=== PATIENT | female | born 1975 | race Hispanic/Latino ===

== ENCOUNTER → 2017-01-05 | Outpatient (REF) | payer OTHER ==
[2017-01-05 12:19] LABS: BASO % 0.3 % (0.0-1.0); EOS # 0.1 K/mm3 (0.0-0.50); EOS % 1.2 % (0.0-3.0); LARGE UNSTAINED CELL # 0.1 K/mm3 (0.0-0.4); LARGE UNSTAINED CELL % 0.8 % (0.0-4.0); LYMPH # 2.1 K/mm3 (1.5-4.5); LYMPH % 17.1 % (24.0-44.0); MEAN CORPUSCULAR HGB CONC 32.8 g/dl (32.0-36.5); MEAN CORPUSCULAR VOLUME 82.3 fl (80.0-96.0); MONO # 0.5 K/mm3 (0.0-0.8); MONO % 4.1 % (0.0-5.0); NEUTROPHILS # 8.9 K/mm3 (1.8-7.7); NEUTROPHILS % 76.5 % (36.0-66.0); PLATELET COUNT, AUTOMATED 469 k/mm3 (150-450); RED CELL DISTRIBUTION WIDTH 13.6 % (11.5-14.5); WHITE BLOOD COUNT 11.6 K/mm3 (4.0-10.0)
[2017-01-05 12:47] LABS: ALBUMIN 3.8 GM/DL (3.2-5.2); ALBUMIN/GLOBULIN RATIO 0.97 (1.00-1.93); ALKALINE PHOSPHATASE 80 U/L (45-117); ALT/SGPT 44 U/L (12-78); ANION GAP 8 MEQ/L (8-16); AST/SGOT 20 U/L (15-37); BILIRUBIN,TOTAL 0.2 MG/DL (0.2-1.0); BLOOD UREA NITROGEN 15 MG/DL (7-18); CALCIUM LEVEL 9.3 MG/DL (8.5-10.1); CARBON DIOXIDE LEVEL 27 MEQ/L (21-32); CHLORIDE LEVEL 106 MEQ/L (98-107); GLOMERULAR FILTRATION RATE > 60.0 (>58); GLUCOSE, FASTING 95 MG/DL (70-105); POTASSIUM SERUM 4.2 MEQ/L (3.5-5.1); SODIUM LEVEL 141 MEQ/L (136-145); TOTAL PROTEIN 7.7 GM/DL (6.4-8.2)
== END ==
LOC: M LABNEURO 11:20
PROVIDERS: ATTEND Psychiatry & Neurology Neurology
DX: R53.83 Other fatigue (principal)

== ENCOUNTER → 2017-01-09 | Outpatient (CLI) | payer OTHER ==
[2017-01-09 15:59] LABS: BASO % 0.3 % (0.0-1.0); EOS # 0.3 K/mm3 (0.0-0.50); LYMPH # 2.3 K/mm3 (1.5-4.5); LYMPH % 23.4 % (24.0-44.0); MEAN CORPUSCULAR HEMOGLOBIN 26.6 pg (27.0-33.0); MEAN CORPUSCULAR HGB CONC 32.5 g/dl (32.0-36.5); MEAN CORPUSCULAR VOLUME 81.8 fl (80.0-96.0); MONO # 0.3 K/mm3 (0.0-0.8); MONO % 3.6 % (0.0-5.0); NEUTROPHILS # 6.6 K/mm3 (1.8-7.7); RED CELL DISTRIBUTION WIDTH 13.5 % (11.5-14.5); WHITE BLOOD COUNT 9.6 K/mm3 (4.0-10.0)
[2017-01-09 16:39] LABS: ALBUMIN 3.7 GM/DL (3.2-5.2); ALBUMIN/GLOBULIN RATIO 0.93 (1.00-1.93); ALKALINE PHOSPHATASE 82 U/L (45-117); ALT/SGPT 45 U/L (12-78); ANION GAP 6 MEQ/L (8-16); AST/SGOT 17 U/L (15-37); BILIRUBIN,TOTAL 0.2 MG/DL (0.2-1.0); BLOOD UREA NITROGEN 14 MG/DL (7-18); CALCIUM LEVEL 8.7 MG/DL (8.5-10.1); CARBON DIOXIDE LEVEL 30 MEQ/L (21-32); CHLORIDE LEVEL 104 MEQ/L (98-107); CHOLESTEROL LEVEL 164 MG/DL (<200); CREATININE FOR GFR 0.85 MG/DL (0.55-1.02); FREE T4 0.84 NG/DL (0.76-1.46); GLOMERULAR FILTRATION RATE > 60.0 (>58); GLUCOSE, FASTING 107 MG/DL (70-105); POTASSIUM SERUM 4.2 MEQ/L (3.5-5.1); SODIUM LEVEL 140 MEQ/L (136-145); TOTAL PROTEIN 7.7 GM/DL (6.4-8.2); TRIGLYCERIDES LEVEL 207 MG/DL (<150)
== END ==
LOC: M LAB 15:13
PROVIDERS: ATTEND Nurse Practitioner Adult Health
DX: E55.9 Vitamin D deficiency, unspecified (principal); Z79.899 Other long term (current) drug therapy; D64.9 Anemia, unspecified; F41.9 Anxiety disorder, unspecified

== ENCOUNTER → 2017-02-08 | Outpatient (CLI) | payer OTHER | LOC: M RAD 15:59 | PROVIDERS: ATTEND Physician Assistant Medical | DX: M25.571 Pain in right ankle and joints of right foot (principal) ==

== ENCOUNTER 2017-03-15 09:32 | Inpatient (IN) | payer OTHER ==
[~2017-03-15] VITALS: Ht 175.3 cm; Wt 87.2 kg
[2017-03-15] MEDS ORDERED: CLAR10CA3 PO (09:58)
[2017-03-15] MEDS ORDERED: NORT10SO PO (09:58)
[2017-03-15 10:22] LABS: MEAN CORPUSCULAR HEMOGLOBIN 27.1 pg (27.0-33.0); MEAN CORPUSCULAR HGB CONC 33.4 g/dl (32.0-36.5); MEAN CORPUSCULAR VOLUME 81.2 fl (80.0-96.0); RED CELL DISTRIBUTION WIDTH 13.6 % (11.5-14.5); WHITE BLOOD COUNT 10.4 K/mm3 (4.0-10.0)
[2017-03-15 10:43] LABS: CONTROL LINE HCG INT CTR LINE PRESENT
[2017-03-15 10:58] LABS: ALBUMIN 3.9 GM/DL (3.2-5.2); ALBUMIN/GLOBULIN RATIO 0.95 (1.00-1.93); ALKALINE PHOSPHATASE 80 U/L (45-117); ALT/SGPT 50 U/L (12-78); ANION GAP 8 MEQ/L (8-16); AST/SGOT 27 U/L (15-37); BILIRUBIN,DIRECT 0.1 MG/DL (0.0-0.2); BILIRUBIN,TOTAL 0.4 MG/DL (0.2-1.0); BLOOD UREA NITROGEN 12 MG/DL (7-18); CALCIUM LEVEL 9.1 MG/DL (8.5-10.1); CARBON DIOXIDE LEVEL 25 MEQ/L (21-32); CHLORIDE LEVEL 103 MEQ/L (98-107); CREATININE FOR GFR 0.69 MG/DL (0.55-1.02); GLOMERULAR FILTRATION RATE > 60.0 (>58); GLUCOSE, FASTING 89 MG/DL (70-105); POTASSIUM SERUM 3.9 MEQ/L (3.5-5.1); SODIUM LEVEL 136 MEQ/L (136-145)
[2017-03-15 11:05] LABS: METHADONE URINE NEGATIVE (NEGATIVE)
[2017-03-15 16:09] VITALS: BP 131/74
[2017-03-15] MEDS ORDERED: LORATADINE 10 MG TAB PO PRN (17:45)
[2017-03-15] MEDS ORDERED: MOM 30ML SUSPENSION UDC PO PRN (17:45)
[2017-03-15] MEDS ORDERED: MAALOX 30 ML SUSP *UDC PO PRN (17:45)
[2017-03-15] MEDS ORDERED: NORTRIPTYLINE 10 MG CAP PO PRN (17:45)
[2017-03-15] MEDS ORDERED: traZODone 50 MG TAB PO PRN (17:45)
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
[2017-03-16] MEDS: ACETAMINOPHEN TAB 650MG DOSE (2X325MG) PO PRN ×3 (06:09→22:21)
[2017-03-16 06:35] VITALS: BP 126/87
[2017-03-16] MEDS ORDERED: ALBUTEROL 90 MCG/ACT 8GM HFA INHALER INH PRN (10:00)
--- NOTE | 2017-03-16 10:00 | HPEPDOC ---
Medical History and Physical Date of Admission Mar 15, 2017 at 15:37 History and Physical PCP: None ATTENDING: Dr. Hero Bernard HPI: 41yoF admitted to [facility] for MDD, being medically examined today. No acute medical complaints today. Denies any fevers, chills, weakness, fatigue, DOTY, CP, SOB, cough, palpitations, abdominal pain, N/V/D or changes in bowel or bladder habits. PMHx: Migraine headache. Following with Dr Neves in [place]. Chronic photophobia Blepharospasm Exercise-induced asthma Depression Allergic rhinitis PSHX: 1 SOCHX: Resides in: [place] Marital Status: Kids: 5 Employment: [employer] Tobacco use: 5 per year ETOH: 4 drinks on weekends Illicit Drugs: Denies IV Drug Use: Denies Tattoos done unprofessionally: Denies FAMHX: Mother: Alive, DM Father: Unknown Siblings: Alive, well Children: Alive, asthma Unexpected deaths due to medical reasons: None. ROS: As noted in HPI, otherwise 11pt ROS of systems reviewed and remarkable only for LMP 02/22/17 PE: GEN: 41 yo F, appears stated age. Well-nourished, well developed. No acute distress. Alert and oriented x 3. Affect flat. Tangential speech HEENT: Normocephalic, atraumatic. Patient is wearing dark glasses which she states she is unable to remove. Nose midline. Nasal turbinates without bogginess. EACs both patent BL. TMs both visualized and johnson with good cone of light, no bulging or erythema. No facial asymmetry. Moist mucous membranes. Dentition fair. Pharynx pink and moist, no cobblestoning. Neck supple, trachea midline. No lymphadenopathy or thyromegaly appreciated. CHEST: Regular rate and rhythm, +S1, +S2 LUNGS: Clear to auscultation bilaterally. No wheezes, rales, or rhonchi. Breathing appears symmetric and easy. Patient is speaking in full sentences. No accessory muscle use. ABD: Round, soft, non-tender, non-distended. +Bowel sounds throughout. No rebound or guarding. No costovertebral angle tenderness. EXT: Pulses 2+ bilaterally dorsalis pedis and radial. No lower extremity edema appreciated. SKIN: [place], dry, warm. Capillary refill <2sec. No rashes. NEURO: Alert and oriented x 3. Cranial nerves III-XII are intact. No focal deficits appreciated. EKG: pending. A&P: 41yoF admitted to [facility] for MDD 1. Psych. Plan per Psychiatry. Obtain baseline EKG to assure the safety of psychiatric medications as they can prolong the QT interval. 2. Chronic migraine headaches/photophobia/blepharospasm. Continue outpatient follow-up with Dr. Neves in [place]. Tylenol 650 mg every 6 hours as needed. 3. Exercise-induced asthma. Albuterol 2 puffs every 4 hours as needed. 4. Follow up. No Primary Care Provider. Will attempt to establish PCP on discharge. 5. Allergic rhinitis. Continue Claritin 10 mg daily as needed. 6. Staff member Eneida present throughout exam. Vital Signs Vital Signs Date Time Temp Pulse Resp B/P (MAP) Pulse Ox O2 Delivery O2 Flow Rate FiO2 03/16/17 06:35 96.3 101 18 126/87 (100) 03/15/17 16:09 97 Room Air Laboratory Data Labs 24H Laboratory Tests 2 03/15/17 10:04: Human Chorionic Gonadotropin, Qual NEGATIVE, Urine Amphetamines Screen NEGATIVE , Urine Benzodiazepines Screen NEGATIVE, Urine Opiates Screen NEGATIVE, Urine Methadone Screen NEGATIVE, Urine Barbiturates Screen NEGATIVE, Urine Phencyclidine Screen NEGATIVE, Urine Cocaine Metabolite Screen NEGATIVE, Urine Cannabinoids Screen NEGATIVE 03/15/17 10:08: Anion Gap 8, Glomerular Filtration Rate > 60.0, Calcium Level 9.1, Aspartate Amino Transf (AST/SGOT) 27, Alanine Aminotransferase (ALT/SGPT) 50, Alkaline Phosphatase 80, Total Bilirubin 0.4, Direct Bilirubin 0.1, Total Protein 8.0, Albumin 3.9, Albumin/Globulin Ratio 0.95L, Thyroid Stimulating Hormone (TSH) 2.470, Salicylates Level < 1.7L, Acetaminophen Level < 2.0L, Ethyl Alcohol Level < 0.003 CBC/BMP Laboratory Tests 03/15/17 10:08 Red Blood Count 4.41, Mean Corpuscular Volume 81.2, Mean Corpuscular Hemoglobin 27.1, Mean Corpuscular Hemoglobin Concent 33.4, Red Cell Distribution Width 13.6 Home Medications No Active Prescriptions or Reported Meds Allergies Coded Allergies: No Known Drug Allergy (Verified Allergy, Unknown, 03/15/17) Joycelyn Kurtz Mar 16, 2017 10:00
[2017-03-16] MEDS: SERTRALINE HCL 50 MG TAB PO SCH (16:02)
[2017-03-16] MEDS ORDERED: diphenhydrAMINE 50 MG CAP PO PRN (18:00)
[2017-03-16] MEDS ORDERED: NORTRIPTYLINE 10 MG CAP PO PRN (18:00)
[2017-03-16 18:10] VITALS: BP 122/84
--- NOTE | 2017-03-16 21:30 | ECGEPIP ---
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
[2017-03-17 06:47] VITALS: BP 122/78
[2017-03-17] MEDS: SERTRALINE HCL 50 MG TAB PO SCH (08:30)
[2017-03-17] MEDS: ACETAMINOPHEN TAB 650MG DOSE (2X325MG) PO PRN (08:30)
--- NOTE | 2017-03-17 11:35 | IPN ---
DATE: 03/16/2017 41-year-old female, who presented at the patient clinic for medication management and reported feeling extremely depressed and considering suicide for the last few days, walking into traffic due to a rare eye condition that is causing her several problems and is creating feelings of worthlessness, helplessness and hopelessness. She describes crying frequently, having loss of interest, excessive worries and difficulty engaging in life. Today, the patient denies suicidal thoughts and refused to say when was the last time that she had a suicidal thought. She expressed several times that she knows the difference between being "a little bit depressed" compared to being "very depressed". She says that she was very depressed years ago when she was in [place] and she attempted to kill herself walking into traffic. She refused to say how long ago this happened. SUBJECTIVE: The patient complains mostly about physical problems, her near blindness betration. She describes it as "I am blind but I am not blind". She says that she has dry eyes and then because she was blinking repeatedly, then she developed blepharospasm and it is very painful for her to look at certain things especially if there is a lot of light because then she gets terrible migraines. She says that she cannot open her eyelids and for that reason, she cannot see. She says that many times when she says the bus stopped, she has missed the bus going by because she has not been able to open her eyes and she has to rely on her children that accompanying her to the bus stop or to work. She reports different type of problems with her daughter particularly and with her other children too. She describes having problems with her daughter because she opposes the way that she relates to her friends and because she has been dating someone and she does not approve of it. She reports financial difficulties and lack of support. She refuses to say when was the last time that she had suicidal thoughts, feels that nobody understands her and expresses frustration. Denies auditory or visual hallucinations and denies though delusions. OBJECTIVE: Patient is alert, oriented times three, hostile and guarded. Her speech is coherent, loud, her thought process is intact and her thought content is anxious about her illness. She denies auditory and visual hallucinations, denies thought delusions and is not specific as of when was the last time that she had a suicidal thought or if she is currently having suicidal ideation. She denies homicidal ideation. Her memory is intact, her attention and concentration are good, her fund of knowledge is fair, her insight and judgment are poor, her impulse control is poor, she gets upset very easily and raises her voice becoming verbally aggressive at times. ASSESSMENT: 1. Borderline personality traits. 2. Major depressive disorder secondary to other medication condition. 3. Anxiety disorder. MANAGEMENT PLAN: Patient reported using nortriptyline for several years for headaches and for depression but she says that she has been taking it as needed. This card writer hand decided to start her on Zoloft 50 mg by mouth daily to help her with her ongoing depression and anxiety. Patient seems to be requiring help, to handle her psychosocial problems and seems to be looking for getting some benefit from this hospitalization, like disability. Patient needs further evaluation to fully assess if she really is fully depressed or if she has come to the inpatient mental health unit looking for a secondary gain. Will monitor closely and will followup.
[2017-03-17] MEDS ORDERED: RIZATRIPTAN BENZOATE 10 MG TAB PO PRN (14:45)
[2017-03-17] MEDS ORDERED: MAXA10TA14 PO (15:55)
[2017-03-17] MEDS ORDERED: risperiDONE 0.5 MG TAB PO SCH (21:00)
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
[2017-03-18] MEDS ORDERED: SERTRALINE HCL 25 MG TABLET PO SCH (09:00)
[2017-03-18] MEDS ORDERED: RIZATRIPTAN BENZOATE 10 MG TAB PO PRN (14:45)
== END 2017-03-17 18:15 | disposition home or self-care (01) | DRG 755 ==
LOC: M ED 09:32 → M ED INP 15:37 → MERGE 15:37 → M ED 15:49 → M PSY 15:55
PROVIDERS: ADMIT Psychiatry & Neurology Psychiatry; ATTEND Psychiatry & Neurology Psychiatry
DX: F45.0 Somatization disorder (principal); F41.9 Anxiety disorder, unspecified; Z62.810 Personal history of physical and sexual abuse in childhood; G43.709 Chronic migraine without aura, not intractable, without status migrainosus; G24.5 Blepharospasm; J45.909 Unspecified asthma, uncomplicated; F60.3 Borderline personality disorder; F43.10 Post-traumatic stress disorder, unspecified

== ENCOUNTER → 2017-04-21 | Outpatient (CLI) | payer OTHER ==
[~2017-04-21] MED LIST: CLAR10CA3 PO; MAXA10TA14 PO; NORT10SO PO
[2017-04-21 14:00] LABS: ALBUMIN 3.8 GM/DL (3.2-5.2); ALBUMIN/GLOBULIN RATIO 0.95 (1.00-1.93); ALKALINE PHOSPHATASE 75 U/L (45-117); ALT/SGPT 30 U/L (12-78); ANION GAP 8 MEQ/L (8-16); AST/SGOT 16 U/L (15-37); BILIRUBIN,TOTAL 0.3 MG/DL (0.2-1.0); BLOOD UREA NITROGEN 15 MG/DL (7-18); CALCIUM LEVEL 9.2 MG/DL (8.5-10.1); CARBON DIOXIDE LEVEL 26 MEQ/L (21-32); CHLORIDE LEVEL 109 MEQ/L (98-107); CHOLESTEROL LEVEL 189 MG/DL (<200); CREATININE FOR GFR 0.66 MG/DL (0.55-1.02); GLOMERULAR FILTRATION RATE > 60.0 (>58); GLUCOSE, FASTING 115 MG/DL (70-105); POTASSIUM SERUM 4.1 MEQ/L (3.5-5.1); SODIUM LEVEL 143 MEQ/L (136-145); TOTAL PROTEIN 7.8 GM/DL (6.4-8.2); TRIGLYCERIDES LEVEL 280 MG/DL (<150)
== END ==
LOC: M LAB 12:43
PROVIDERS: ATTEND Nurse Practitioner Family
DX: Z13.29 Encounter for screening for other suspected endocrine disorder (principal); E55.9 Vitamin D deficiency, unspecified

== ENCOUNTER 2017-08-09 09:13 | Inpatient (IN) | payer MEDICAID, OTHER ==
[~2017-08-09] VITALS: Ht 175.3 cm; Wt 82.0 kg
[2017-08-09] MEDS ORDERED: COLA100C5 PO (09:25)
[2017-08-09] MEDS ORDERED: TOPI100T9 PO (09:25)
[2017-08-09] MEDS ORDERED: MIRA3350 PO (09:25)
[2017-08-09] MEDS ORDERED: REFR0.5D8 OU (09:43)
[2017-08-09] MEDS ORDERED: SYST1SOL OU (09:43)
[2017-08-09 09:55] LABS: MEAN CORPUSCULAR HEMOGLOBIN 26.3 pg (27.0-33.0); MEAN CORPUSCULAR VOLUME 79.6 fl (80.0-96.0); PLATELET COUNT, AUTOMATED 440 10^3/uL (150-450); RED CELL DISTRIBUTION WIDTH 14.4 % (11.5-14.5); WHITE BLOOD COUNT 11.1 10^3/uL (4.0-10.0)
[2017-08-09 10:20] LABS: CONTROL LINE HCG INT CTR LINE PRESENT
[2017-08-09 10:36] LABS: ALBUMIN 3.8 GM/DL (3.2-5.2); ALBUMIN/GLOBULIN RATIO 0.83 (1.00-1.93); ALKALINE PHOSPHATASE 67 U/L (45-117); ALT/SGPT 37 U/L (12-78); ANION GAP 10 MEQ/L (8-16); AST/SGOT 15 U/L (7-37); BILIRUBIN,DIRECT < 0.1 MG/DL (0.0-0.2); BILIRUBIN,TOTAL 0.4 MG/DL (0.2-1.0); BLOOD UREA NITROGEN 14 MG/DL (7-18); CALCIUM LEVEL 8.9 MG/DL (8.5-10.1); CARBON DIOXIDE LEVEL 20 MEQ/L (21-32); CHLORIDE LEVEL 110 MEQ/L (98-107); CREATININE FOR GFR 0.77 MG/DL (0.55-1.02); GLOMERULAR FILTRATION RATE > 60.0 (>58); GLUCOSE, FASTING 101 MG/DL (70-105); POTASSIUM SERUM 3.6 MEQ/L (3.5-5.1); SODIUM LEVEL 140 MEQ/L (136-145); TOTAL PROTEIN 8.4 GM/DL (6.4-8.2)
[2017-08-09 10:37] LABS: METHADONE URINE NEGATIVE (NEGATIVE)
[2017-08-09] MEDS ORDERED: ACETAMINOPHEN TAB 650MG DOSE (2X325MG) PO PRN (11:45)
[2017-08-09] MEDS ORDERED: traZODone 50 MG TAB PO PRN (11:45)
[2017-08-09] MEDS ORDERED: MOM 30ML SUSPENSION UDC PO PRN (11:45)
[2017-08-09] MEDS ORDERED: MAALOX 30 ML SUSP *UDC PO PRN (11:45)
[2017-08-09 12:59] VITALS: BP 112/70
[2017-08-09] MEDS ORDERED: SYST0.4D2 OU (13:07)
[2017-08-09] MEDS ORDERED: POLYVINYL ALCOHOL OPHTH SOLN 15 ML(LIQUITEARS) OU PRN (16:15)
--- NOTE | 2017-08-09 16:43 | MHHPEPDOC ---
[facility] History & Physical History and Physical DATE OF ADMISSION: Aug 09, 2017 at 11:38 LEGAL STATUS AT ADMISSION: 9.39. 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 Patient reports depressed mood, fatigue, poor sleep, poor concentration, with dreams of SI last night, but without current SI intent and plan. Patient denies manic symptoms and AVH. Patient states that her 17 yo daughter got , got into an argument with the patient, and moved out. Pt feels devastated that she lost her daughter. Also describes conflicts with her other children, namely that they demand from her but show her no love and respect. Patient describes that her mother is sick as well. Did not assess for PTSD symptoms this visit. Patient then endorses having a disease in which light gives her very bad headaches, forcing her to walk around with a stick and sunglasses, calling herself vision impaired. She states she needs her children to take her place to place because she is sick. Pt states that she has been seen by a neurologist. 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 Patient sees a therapist outpt. Does not take any outpatient medications. ALLERGIES: Denies FAMILY PSYCHIATRIC HISTORY: denies SOCIAL HISTORY: Born in [facility], moved to [place] at age 7, Father in [facility], now lives with mother and 2 children, a few months ago but 10 years ago, two years of [employer] in [place] SUBSTANCE ABUSE HISTORY: denies PAST MEDICAL/SURGICAL HISTORY: Vision problem began gradually a year ago, diagnosed this year in August, by a neurologist VITAL SIGNS: Please see below. MENTAL STATUS EXAMINATION: General appearance: sunglasses, has stick, casually groomed Behavior: patient keeps eyes squinted saying that the light makes her head hurt , but at times she is seen opening her eyes when she is thinking about something or looking at something Speech: normal RRV, sad anxious tone Thought processes: linear Thought content: appropriate to conversation Judgment: poor Insight: poor Orientation: AAOx3 Mood: "depressed" Affect: dysphoric, reactive DIAGNOSES: 1. personality disorder unspecified 2. 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 MDD ASSESSMENT: Patient's neurological condition in which she cannot see any kind of bright light due to headache is likely psychogenic in nature, given that she opened her eyes several times when she did not think she was being observed. 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 PROBLEM LIST: 1. depression 2. poor sleep 3. "migraines" INITIAL TREATMENT PLAN: 1. Patient was admitted on a . 2. Complete history was obtained. 3. With patients permission, family will be contacted and database will be expanded. 4. Patients medication regimen will be reviewed and changed accordingly. 5. Patient will be provided with protected environment. 6. Patient will be treated with individual, group, and milieu therapies. 7. Patient will receive supportive psych-education. 8. Discharge planning will commence immediately. 9. Outpatient follow-up treatment will be strongly recommended. 10. The initial treatment plan will focus initially on: * Depression. * Risk for suicide. * Substance abuse. - Begin zoloft 50 mg daily for mood - Reinitiate home medications including topiramate - PRNs: trazodone, mom, mylanta, tylenol ESTIMATED LENGTH OF STAY: - DAYS. TIME SPENT COUNSELING AND COORDINATING INITIAL CARE: minutes. Vital Signs Vital Signs Date Time Temp Pulse Resp B/P (MAP) Pulse Ox O2 Delivery O2 Flow Rate FiO2 08/09/17 12:59 98.9 77 16 112/70 (84) 98 Room Air Laboratory Data 24H Labs Laboratory Tests 2 08/09/17 09:48: Nucleated Red Blood Cells % (auto) 0.0, Anion Gap 10, Glomerular Filtration Rate > 60.0, Calcium Level 8.9, Aspartate Amino Transf (AST/SGOT) 15, Alanine Aminotransferase (ALT/SGPT) 37, Alkaline Phosphatase 67, Total Bilirubin 0.4, Direct Bilirubin < 0.1, Total Protein 8.4H, Albumin 3.8, Albumin/Globulin Ratio 0.83L, Thyroid Stimulating Hormone (TSH) 2.300, Human Chorionic Gonadotropin, Qual NEGATIVE, Salicylates Level < 1.7L, Acetaminophen Level 11.0, Ethyl Alcohol Level 0.004 08/09/17 09:59: Urine Amphetamines Screen NEGATIVE, Urine Benzodiazepines Screen NEGATIVE, Urine Opiates Screen NEGATIVE, Urine Methadone Screen NEGATIVE, Urine Barbiturates Screen NEGATIVE, Urine Phencyclidine Screen NEGATIVE, Urine Cocaine Metabolite Screen NEGATIVE, Urine Cannabinoids Screen NEGATIVE CBC/BMP Laboratory Tests 08/09/17 09:48 Red Blood Count 4.41, Mean Corpuscular Volume 79.6 L, Mean Corpuscular Hemoglobin 26.3 L, Mean Corpuscular Hemoglobin Concent 33.0, Red Cell Distribution Width 14.4 Medications Scheduled (Systane Gel 0.4-0.3 %) 1 Ramos Ramos, 1 RAMOS OU QHS for ., (Reported) Topiramate (Topiramate) 100 Mg Tab, 100 MG PO DAILY, (Reported) Scheduled PRN Carboxymethylcellulose Sodium (Refresh Tears) 0.5 % Ramos, 0.5 % OU PRN PRN for DRY EYES, (Reported) Docusate Sodium (Colace) 100 Mg Cap, 100 MG PO DAILY PRN for DAILY, (Reported) Polyethylene Glycol (Miralax) 1 Pow Pow, 17 GM PO DAILY PRN for CONSTIPATION, ( Reported) Allergies Coded Allergies: No Known Drug Allergy (Verified Allergy, Unknown, 03/25/17) NORBERTO BATEMAN MD Aug 09, 2017 16:43
[2017-08-09] MEDS: LACRILUBE (AKWA TEARS) OPHTH OINT 3.5 GM OU SCH (20:48)
[2017-08-09] MEDS: SERTRALINE HCL 50 MG TAB PO SCH (20:48)
[2017-08-09] MEDS: IBUPROFEN 400 MG TAB PO PRN (21:05)
[2017-08-09] MEDS: DOCUSATE SODIUM 100 MG CAP PO PRN (21:27)
[2017-08-09] MEDS: MIRALAX *UNIT DOSE* 17GM PACKET PO PRN (21:28)
[2017-08-10 06:17] VITALS: BP 105/57
[2017-08-10] MEDS ORDERED: TOPIRAMATE (TopAMAX) 100 MG TAB PO SCH (09:00)
--- NOTE | 2017-08-10 10:41 | HPEPDOC ---
[facility] Medical History & Physical Date of Admission Aug 09, 2017 History and Physical PCP: [facility] ATTENDING: Dr. Hero Bernard HPI: 42yoF admitted to [facility] for Depressive disorder with psychotic features, being medically examined today. The patient states she was seen by her primary care provider recently for constipation. She was started on bowel care. The past few day she states she's been having diarrhea. Some nausea however no vomiting. She states this has been going on and off since [place]. She denies any urinary complaints, no dysuria, frequency, urgency. Denies any fevers, chills, weakness, fatigue, DOTY, CP, SOB, cough, palpitations, abdominal pain, N/V/D or changes in bowel or bladder habits. PMHx: Migraine headache. Following with Dr Neves in [place]. Chronic photophobia Blepharospasm. Receives Botox in [place]. Exercise-induced asthma Depression Allergic rhinitis Vision impaired PSHX: 1 SOCHX: Resides in: [place] Marital Status: Kids: 5 Employment: [employer] Tobacco use: 5 per year ETOH: 4 drinks on weekends Illicit Drugs: Denies IV Drug Use: Denies Tattoos done unprofessionally: Denies FAMHX: Mother: Alive, DM Father: Unknown Siblings: Alive, well Children: Alive, asthma Unexpected deaths due to medical reasons: None. ROS: As noted in HPI, otherwise 11pt ROS of systems reviewed and remarkable only for LMP 08/08/17. PE: GEN: 42 yo F, appears stated age. Well-nourished, well developed. No acute distress. Alert and oriented x 3. Affect flat. Tangential speech HEENT: Normocephalic, atraumatic. Patient is wearing dark glasses which she states she is unable to remove. Nose midline. Nasal turbinates without bogginess. EACs both patent BL. TMs both visualized and johnson with good cone of light, no bulging or erythema. No facial asymmetry. Moist mucous membranes. Dentition fair. Pharynx pink and moist, no cobblestoning. Neck supple, trachea midline. No lymphadenopathy or thyromegaly appreciated. CHEST: Regular rate and rhythm, +S1, +S2 LUNGS: Clear to auscultation bilaterally. No wheezes, rales, or rhonchi. Breathing appears symmetric and easy. Patient is speaking in full sentences. No accessory muscle use. ABD: Round, soft, mild tenderness with palpation in the right and left lower quadrants., non-distended. +Bowel sounds throughout. No rebound or guarding. No costovertebral angle tenderness. EXT: Pulses 2+ bilaterally dorsalis pedis and radial. No lower extremity edema appreciated. SKIN: [place], dry, warm. Capillary refill <2sec. No rashes. NEURO: Alert and oriented x 3. Cranial nerves III-XII are intact. No focal deficits appreciated. EKG: pending. A&P: 41yoF admitted to [facility] for MDD 1. Psych. Plan per Psychiatry. Obtain baseline EKG to assure the safety of psychiatric medications as they can prolong the QT interval. 2. Chronic migraine headaches/photophobia/blepharospasm. Continue outpatient follow-up with Dr. Neves in [place]. Tylenol 650 mg every 6 hours as needed. 3. Abdominal pain/diarrhea. Update CBC/CMP. Request GI panel. Check CT scan abdomen and pelvis. 4. Follow up with PCP on discharge. 5. Allergic rhinitis. Continue Claritin 10 mg daily as needed. 6. Chronic constipation. It is noted the patient took her as needed bowel care last evening. Reinforced with the patient to hold this for loose stools. 7. Staff member Cara CROWLEY present throughout exam. Vital Signs Vital Signs Date Time Temp Pulse Resp B/P (MAP) Pulse Ox O2 Delivery O2 Flow Rate FiO2 08/10/17 06:17 97.6 68 16 105/57 (73) 08/09/17 12:59 98 Room Air Laboratory Data Labs 24H Item Value Date Time Sodium Level 140 MEQ/L 08/09/17 0948 Potassium Level 3.6 MEQ/L 08/09/17 0948 Chloride Level 110 MEQ/L H 08/09/17 0948 Carbon Dioxide Level 20 MEQ/L L 08/09/17 0948 Anion Gap 10 MEQ/L 08/09/17 0948 Blood Urea Nitrogen 14 MG/DL 08/09/17 0948 Creatinine 0.77 MG/DL 08/09/17 0948 Glomerular Filtration Rate > 60.0 08/09/17 0948 Fasting Glucose 101 MG/DL 08/09/17 0948 Calcium Level 8.9 MG/DL 08/09/17 0948 Total Bilirubin 0.4 MG/DL 08/09/17 0948 Direct Bilirubin < 0.1 MG/DL 08/09/17 0948 Aspartate Amino Transf (AST/SGOT) 15 U/L 08/09/17 0948 Alanine Aminotransferase (ALT/SGPT) 37 U/L 08/09/17 0948 Alkaline Phosphatase 67 U/L 08/09/17 0948 Total Protein 8.4 GM/DL H 08/09/17 0948 Albumin 3.8 GM/DL 08/09/17 0948 Albumin/Globulin Ratio 0.83 L 08/09/17 0948 Thyroid Stimulating Hormone (TSH) 2.300 uIU/ML 08/09/17 0948 Human Chorionic Gonadotropin, Qual NEGATIVE 08/09/17 0948 White Blood Count 11.1 10^3/uL H 08/09/17 0948 Red Blood Count 4.41 10^6/uL 08/09/17 0948 Hemoglobin 11.6 g/dl L 08/09/17 0948 Hematocrit 35.1 % L 08/09/17 0948 Mean Corpuscular Volume 79.6 fl L 08/09/17 0948 Mean Corpuscular Hemoglobin 26.3 pg L 08/09/17 0948 Mean Corpuscular Hemoglobin Concent 33.0 g/dl 08/09/17 0948 Red Cell Distribution Width 14.4 % 08/09/17 0948 Platelet Count 440 10^3/uL 08/09/17 0948 Salicylates Level < 1.7 MG/DL L 08/09/17 0948 Urine Opiates Screen NEGATIVE 08/09/17 0959 Urine Methadone Screen NEGATIVE 08/09/17 0959 Acetaminophen Level 11.0 UG/ML 08/09/17 0948 Urine Barbiturates Screen NEGATIVE 08/09/17 0959 Urine Phencyclidine Screen NEGATIVE 08/09/17 0959 Urine Amphetamines Screen NEGATIVE 08/09/17 0959 Urine Benzodiazepines Screen NEGATIVE 08/09/17 0959 Urine Cocaine Metabolite Screen NEGATIVE 08/09/17 0959 Urine Cannabinoids Screen NEGATIVE 08/09/17 0959 Ethyl Alcohol Level 0.004 % 08/09/17 0948 Home Medications Scheduled (Systane Gel 0.4-0.3 %) 1 Devante Devante, 1 DEVANTE OU QHS for . Topiramate (Topiramate) 100 Mg Tab, 100 MG PO DAILY Scheduled PRN Carboxymethylcellulose Sodium (Refresh Tears) 0.5 % Devante, 0.5 % OU PRN PRN for DRY EYES Docusate Sodium (Colace) 100 Mg Cap, 100 MG PO DAILY PRN for DAILY Polyethylene Glycol (Miralax) 1 Pow Pow, 17 GM PO DAILY PRN for CONSTIPATION Allergies Coded Allergies: No Known Drug Allergy (Verified Allergy, Unknown, 03/25/17) Joycelyn Kurtz Aug 10, 2017 10:41
[2017-08-10 12:58] LABS: BASO % 0.4 % (0.0-1.0); EOS # 0.2 10^3/uL (0.0-0.50); EOS % 1.6 % (0.0-3.0); IMMATURE GRANULOCYTE % 0.5 % (0-0); LYMPH # 2.4 10^3/uL (1.5-4.5); LYMPH % 25.2 % (24.0-44.0); MEAN CORPUSCULAR HEMOGLOBIN 25.7 pg (27.0-33.0); MEAN CORPUSCULAR HGB CONC 32.3 g/dl (32.0-36.5); MEAN CORPUSCULAR VOLUME 79.6 fl (80.0-96.0); MONO # 0.5 10^3/uL (0.0-0.8); MONO % 5.6 % (0.0-5.0); NEUTROPHILS # 6.4 10^3/uL (1.8-7.7); NEUTROPHILS % 66.7 % (36.0-66.0); PLATELET COUNT, AUTOMATED 454 10^3/uL (150-450); RED CELL DISTRIBUTION WIDTH 14.7 % (11.5-14.5); WHITE BLOOD COUNT 9.7 10^3/uL (4.0-10.0)
--- NOTE | 2017-08-10 13:55 | REP ---
CT ABDOMEN PELVIS WITHOUT IV OR ORAL CONTRAST: HISTORY: Abdomen pain. Comparison MRI abdomen study is from December 29, 2012. CT FINDINGS: Preliminary digital back line cook radiograph is unremarkable. The lung bases are clear on axial CT images. The liver and the spleen are normal in size homogeneous in texture. The gallbladder shows no abnormality. No adrenal lesion is seen on either side. No pancreatic abnormality is observed. Kidneys are morphologically intact. No mass, or cyst. No hydronephrosis seen. There is a 1 mm calcification in the right mid kidney anteriorly consistent with an intrarenal calculus. No other intrarenal stone is seen. No ureteral stone is observed. No bladder calculus is seen. There are phleboliths in the pelvis. Urinary bladder is intact. N0 uterine or ovarian abnormality is observed. A normal air-filled appendix is seen coursing medially into the pelvis. No abdominal wall defect is seen. Bone window settings show no bony destructive lesion. IMPRESSION: 1 mm intrarenal calculus right kidney. Normal appendix seen. Otherwise unremarkable CT study of the abdomen and pelvis. Signed by Marcelo Red MD 08/10/2017 02:26 P
[2017-08-10] MEDS: IBUPROFEN 400 MG TAB PO PRN (16:04)
--- NOTE | 2017-08-10 17:50 | MHIPNPDOC ---
[facility] Progress Note Progress Note DATE OF SERVICE: 08/10/17 HISTORY: The patient reports better mood, good sleep, socializing on the unit. Patient states that she does not want her children to know that she is here. Patient denies SI intent and plan, did not endorse AVH. Patient talks about how she had a headache and took some ibuprofen yesterday. States she wishes to discuss with her outpt provider about changing the topamax, which she has learned can potentially cause depression. VITAL SIGNS: See below. NEW TEST RESULTS: na CURRENT MEDICATIONS: See below. MENTAL STATUS EXAMINATION: General appearance: sunglasses, has stick, casually groomed Behavior: superficially related Speech: normal RRVT Thought processes: linear Thought content: appropriate to conversation Judgment: poor Insight: poor Orientation: AAOx3 Mood: "better" Affect: euthymic, reactive DIAGNOSES: 1. personality disorder unspecified 2. 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 MDD ASSESSMENT: Patient's neurological condition in which she cannot see any kind of bright light due to headache is likely psychogenic in nature, given that she opened her eyes several times when she did not think she was being observed. 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 PROBLEM LIST: 1. depression 2. poor sleep 3. "migraines" PLAN: - Begin zoloft 50 mg daily for mood - Reinitiate home medications including topiramate - PRNs: trazodone, mom, mylanta, tylenol ESTIMATED LENGTH OF STAY: 5 DAYS. TIME SPENT COUNSELING AND COORDINATING INITIAL CARE: 25 minutes. Vital Signs Vital Signs Date Time Temp Pulse Resp B/P (MAP) Pulse Ox O2 Delivery O2 Flow Rate FiO2 08/10/17 06:17 97.6 68 16 105/57 (73) 08/09/17 12:59 98 Room Air Laboratory Data 24H Labs Laboratory Tests 2 08/10/17 12:07: Immature Granulocyte % (Auto) 0.5H, White Blood Count 9.7, Red Blood Count 4.47 , Hemoglobin 11.5L, Hematocrit 35.6L, Mean Corpuscular Volume 79.6L, Mean Corpuscular Hemoglobin 25.7L, Mean Corpuscular Hemoglobin Concent 32.3, Red Cell Distribution Width 14.7H, Platelet Count 454H, Neutrophils (%) (Auto) 66.7H , Lymphocytes (%) (Auto) 25.2, Monocytes (%) (Auto) 5.6H, Eosinophils (%) (Auto ) 1.6, Basophils (%) (Auto) 0.4, Neutrophils # (Auto) 6.4, Lymphocytes # (Auto) 2.4, Monocytes # (Auto) 0.5, Eosinophils # (Auto) 0.2, Basophils # (Auto) 0.0, Immature Granulocyte # (Auto) 0.1H, Nucleated Red Blood Cells % (auto) 0.0 08/10/17 16:45: Urine Appearance CLEAR, Urine Color YELLOW, Urine pH 5.0, Urine Specific [place] 1.018, Urine Protein NEGATIVE, Urine Glucose (UA) NEGATIVE, Urine Ketones NEGATIVE, Urine Urobilinogen 0.2, Urine Bilirubin NEGATIVE, Urine Leukocyte Esterase NEGATIVE, Urine Blood 3+H, Urine Nitrite NEGATIVE, Urine WBC (Auto) 2, Urine RBC (Auto) TNTCH, Urine Hyaline Casts (Auto) 0, Urine Bacteria ( Auto) NEGATIVE, Urine Squamous Epithelial Cells 1, Urine Mucus (Auto) SMALL, Urine Sperm (Auto) CBC/BMP Laboratory Tests 08/10/17 12:07 Red Blood Count 4.47, Mean Corpuscular Volume 79.6 L, Mean Corpuscular Hemoglobin 25.7 L, Mean Corpuscular Hemoglobin Concent 32.3, Red Cell Distribution Width 14.7 H, Neutrophils (%) (Auto) 66.7 H, Lymphocytes (%) (Auto ) 25.2, Monocytes (%) (Auto) 5.6 H, Eosinophils (%) (Auto) 1.6, Basophils (%) ( Auto) 0.4, Neutrophils # (Auto) 6.4, Lymphocytes # (Auto) 2.4, Monocytes # (Auto ) 0.5, Eosinophils # (Auto) 0.2, Basophils # (Auto) 0.0 Current Medications Current Medications Acetaminophen (Tylenol Tab) 650 mg Q6HP PRN PO HEADACHE or DISCOMFORT; Start 08/09/17 at 11:45; Stop 09/08/17 at 11:44 Al Hydrox/Mg Hydrox/Simethicone (Mylanta) 30 ml Q4HP PRN PO HEARTBURN/ INDIGESTION; Start 08/09/17 at 11:45; Stop 09/08/17 at 11:44 Artificial Tears (Akwa Tears) 2 drop TIDP PRN OU DRY EYES; Start 08/09/17 at 16:15; Stop 09/08/17 at 16:14 Artificial Tears (Lacri-Lube Ophth Ointment) APPLY 1/4 IN. RIBBON QHS OU Last administered on 08/09/17 20:48; Start 08/09/17 at 21:00; Stop 09/08/17 at 20: 59 Docusate Sodium (Colace) 100 mg DAILY PRN PO DAILY Last administered on 21:27; Start 08/09/17 at 16:15; Stop 09/08/17 at 16:14 Home Med (Med Rec Complete!) ASDIRECTED XX ; Start 08/09/17 at 13:15; Stop at 13:15; Status DC Ibuprofen (Advil) 400 mg Q8HP PRN PO PAIN Last administered on 08/10/17 16:04 ; Start 08/09/17 at 16:30; Stop 09/08/17 at 16:29 Magnesium Hydroxide (Milk Of Magnesia) 30 ml DAILYPRN PRN PO CONSTIPATION; Start 08/09/17 at 11:45; Stop 09/08/17 at 11:44 Polyethylene Glycol (Miralax) 1 pkt DAILY PRN PO CONSTIPATION Last administered on 08/09/17 21:28; Start 08/09/17 at 16:15; Stop 09/08/17 at 16: 14 Sertraline HCl (Zoloft) 50 mg QHS PO Last administered on 08/09/17 20:48; Start 08/09/17 at 21:00; Stop 09/08/17 at 20:59 Topiramate (TopAMAX) 100 mg DAILY PO ; Start 08/10/17 at 09:00; Stop 08/10/17 at 09:18; Status DC Topiramate (TopAMAX) 100 mg QHS PO ; Start 08/10/17 at 21:00; Stop 09/09/17 at 20:59 Trazodone HCl (Desyrel) 50 mg QHSP PRN PO INSOMNIA; Start 08/09/17 at 11:45; Stop 09/08/17 at 11:44 Allergies Coded Allergies: No Known Drug Allergy (Verified Allergy, Unknown, 03/25/17) NORBERTO BATEMAN MD Aug 10, 2017 17:50
[2017-08-10 18:00] VITALS: BP 98/55
[2017-08-10] MEDS: SERTRALINE HCL 50 MG TAB PO SCH (20:05)
[2017-08-10] MEDS: LACRILUBE (AKWA TEARS) OPHTH OINT 3.5 GM OU SCH (20:06)
[2017-08-10] MEDS: TOPIRAMATE (TopAMAX) 100 MG TAB PO SCH (20:06)
[2017-08-10] MEDS: DOCUSATE SODIUM 100 MG CAP PO PRN (20:07)
[2017-08-10] MEDS: MIRALAX *UNIT DOSE* 17GM PACKET PO PRN (20:08)
--- NOTE | 2017-08-10 21:03 | ECGEPIP ---
Stationary ECG Study 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
[2017-08-10 22:16] LABS: ALBUMIN 4.1 GM/DL (3.2-5.2); ALBUMIN/GLOBULIN RATIO 1.08 (1.00-1.93); ALKALINE PHOSPHATASE 70 U/L (45-117); ALT/SGPT 37 U/L (12-78); ANION GAP 9 MEQ/L (8-16); AST/SGOT 19 U/L (7-37); BILIRUBIN,TOTAL 0.3 MG/DL (0.2-1.0); BLOOD UREA NITROGEN 18 MG/DL (7-18); CALCIUM LEVEL 9.2 MG/DL (8.5-10.1); CARBON DIOXIDE LEVEL 22 MEQ/L (21-32); CHLORIDE LEVEL 110 MEQ/L (98-107); CREATININE FOR GFR 0.74 MG/DL (0.55-1.02); GLOMERULAR FILTRATION RATE > 60.0 (>58); GLUCOSE, FASTING 83 MG/DL (70-105); POTASSIUM SERUM 4.5 MEQ/L (3.5-5.1); SODIUM LEVEL 141 MEQ/L (136-145); TOTAL PROTEIN 7.9 GM/DL (6.4-8.2)
[2017-08-11 06:54] VITALS: BP 105/60
[2017-08-11] MEDS: IBUPROFEN 400 MG TAB PO PRN (12:05)
--- NOTE | 2017-08-11 15:59 | MHIPNPDOC ---
[facility] Progress Note Progress Note DATE OF SERVICE: 08/11/17 HISTORY: Patient states that she has been making peace with her daughter moving out and getting . Patient denies feeling as depressed as admission, states her mood is improving. Patient denies SI intent and plan, did not endorse AH. Patient feels comfortable with discharge tomorrow. VITAL SIGNS: See below. NEW TEST RESULTS: na CURRENT MEDICATIONS: See below. MENTAL STATUS EXAMINATION: General appearance: sunglasses, has stick, casually groomed Behavior: superficially related Speech: normal RRVT Thought processes: linear Thought content: appropriate to conversation Judgment: poor Insight: improving Orientation: AAOx3 Mood: "better" Affect: euthymic, reactive DIAGNOSES: 1. personality disorder unspecified 2. 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 MDD ASSESSMENT: Patient's neurological condition in which she cannot see any kind of bright light due to headache is likely psychogenic in nature, given that she opened her eyes several times when she did not think she was being observed. Patient's mood improved very rapidly during this course of hospitalization, though she is very labile. PROBLEM LIST: 1. depression 2. poor sleep 3. "migraines" PLAN: - Continue zoloft 50 mg daily for mood - Reinitiate home medications including topiramate - PRNs: trazodone, mom, mylanta, tylenol ESTIMATED LENGTH OF STAY: 5 DAYS. TIME SPENT COUNSELING AND COORDINATING INITIAL CARE: 25 minutes. Vital Signs Vital Signs Date Time Temp Pulse Resp B/P (MAP) Pulse Ox O2 Delivery O2 Flow Rate FiO2 08/11/17 06:54 98.2 67 14 105/60 (75) 08/09/17 12:59 98 Room Air Laboratory Data 24H Labs Laboratory Tests 2 08/10/17 16:45: Urine Appearance CLEAR, Urine Color YELLOW, Urine pH 5.0, Urine Specific [place] 1.018, Urine Protein NEGATIVE, Urine Glucose (UA) NEGATIVE, Urine Ketones NEGATIVE, Urine Urobilinogen 0.2, Urine Bilirubin NEGATIVE, Urine Leukocyte Esterase NEGATIVE, Urine Blood 3+H, Urine Nitrite NEGATIVE, Urine WBC (Auto) 2, Urine RBC (Auto) TNTCH, Urine Hyaline Casts (Auto) 0, Urine Bacteria ( Auto) NEGATIVE, Urine Squamous Epithelial Cells 1, Urine Mucus (Auto) SMALL, Urine Sperm (Auto) Current Medications Current Medications Acetaminophen (Tylenol Tab) 650 mg Q6HP PRN PO HEADACHE or DISCOMFORT; Start 08/09/17 at 11:45; Stop 09/08/17 at 11:44 Al Hydrox/Mg Hydrox/Simethicone (Mylanta) 30 ml Q4HP PRN PO HEARTBURN/ INDIGESTION; Start 08/09/17 at 11:45; Stop 09/08/17 at 11:44 Artificial Tears (Akwa Tears) 2 drop TIDP PRN OU DRY EYES; Start 08/09/17 at 16:15; Stop 09/08/17 at 16:14 Artificial Tears (Lacri-Lube Ophth Ointment) APPLY 1/4 IN. RIBBON QHS OU Last administered on 08/10/17 20:06; Start 08/09/17 at 21:00; Stop 09/08/17 at 20: 59 Docusate Sodium (Colace) 100 mg DAILY PRN PO DAILY Last administered on 20:07; Start 08/09/17 at 16:15; Stop 09/08/17 at 16:14 Home Med (Med Rec Complete!) ASDIRECTED XX ; Start 08/09/17 at 13:15; Stop at 13:15; Status DC Ibuprofen (Advil) 400 mg Q8HP PRN PO PAIN Last administered on 08/11/17 12:05 ; Start 08/09/17 at 16:30; Stop 09/08/17 at 16:29 Magnesium Hydroxide (Milk Of Magnesia) 30 ml DAILYPRN PRN PO CONSTIPATION; Start 08/09/17 at 11:45; Stop 09/08/17 at 11:44 Polyethylene Glycol (Miralax) 1 pkt DAILY PRN PO CONSTIPATION Last administered on 08/10/17 20:08; Start 08/09/17 at 16:15; Stop 09/08/17 at 16: 14 Sertraline HCl (Zoloft) 50 mg QHS PO Last administered on 08/10/17 20:05; Start 08/09/17 at 21:00; Stop 09/08/17 at 20:59 Topiramate (TopAMAX) 100 mg DAILY PO ; Start 08/10/17 at 09:00; Stop 08/10/17 at 09:18; Status DC Topiramate (TopAMAX) 100 mg QHS PO Last administered on 12/19/17at 20:06; Start 08/10/17 at 21:00; Stop 09/09/17 at 20:59 Trazodone HCl (Desyrel) 50 mg QHSP PRN PO INSOMNIA; Start 08/09/17 at 11:45; Stop 09/08/17 at 11:44 Allergies Coded Allergies: No Known Drug Allergy (Verified Allergy, Unknown, 03/25/17) NORBERTO BATEMAN MD Aug 11, 2017 15:59
[2017-08-11 18:00] VITALS: BP 94/51
[2017-08-11] MEDS: DOCUSATE SODIUM 100 MG CAP PO PRN (21:00)
[2017-08-11] MEDS: SERTRALINE HCL 50 MG TAB PO SCH (21:00)
[2017-08-11] MEDS: TOPIRAMATE (TopAMAX) 100 MG TAB PO SCH (21:00)
[2017-08-11] MEDS: LACRILUBE (AKWA TEARS) OPHTH OINT 3.5 GM OU SCH (21:01)
[2017-08-11] MEDS: MIRALAX *UNIT DOSE* 17GM PACKET PO PRN (21:02)
[2017-08-12 06:55] VITALS: BP 110/58
[2017-08-12] MEDS ORDERED: INFLUENZA QUADRIVALENT PF VACCINE 0.5ML SYRINGE (90686) IM ONE (09:00)
[2017-08-12] MEDS ORDERED: SERT50TA PO (10:24)
[2017-08-12] MEDS ORDERED: TRAZO50TA PO (10:24)
--- NOTE | 2017-08-12 13:53 | MHDSPDOC ---
[facility] Discharge Summary Discharge Summary DATE OF ADMISSION: Aug 09, 2017 at 11:38 DATE OF DISCHARGE: 08/12/17 DISCHARGE DIAGNOSES: 1. 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 Patient reports depressed mood, fatigue, poor sleep, poor concentration, with dreams of SI last night, but without current SI intent and plan. Patient denies manic symptoms and AVH. Patient states that her 17 yo daughter got , got into an argument with the patient, and moved out. Pt feels devastated that she lost her daughter. Also describes conflicts with her other children, namely that they demand from her but show her no love and respect. Patient describes that her mother is sick as well. Patient then endorses having a disease in which light gives her very bad headaches, forcing her to walk around with a stick and sunglasses, calling herself vision impaired. She states she needs her children to take her place to place because she is sick. She feels depressed that they are not doing so. Pt states that she has been seen by a neurologist. 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 Patient denies flashbacks and nightmares this admission, but prior notes mention PTSD. Did not further assess this diagnosis. Patient sees a therapist outpt. Does not take any outpatient medications. CONSULTANTS INVOLVED: na TREATMENT AND PROGRESS ON THE UNIT : Patient had labile mood on first interview, becoming tearful easily. Patient was put on zoloft 50 mg qhs for mood, trazodone 50 mg qhs for sleep, and continued on her home topiramate 100 mg qhs for headaches. Pt had constipation and headache before admission, and also took miralax and colace for BM, ibuprofen for headache, and artificial tears for dry eyes. On the the subsequent days, the patient's mood was much more improved, as she was smiling at times and socializing with other patients. Patient states that having improved sleep made her feel much better. She denied depression, SI intent and plan, and was looking forward to going home. Based on informal assessment, it seems as if the patient's neurological condition in which she cannot see any kind of bright light due to headache may be psychogenic in nature, given that she opened her eyes several times when she did not think she was being observed. Would consider somatization for several of her symptoms - AH, headache, constipation. DISCHARGE ASSESSMENT: Patient was euthymic, without SI intent and plan, without AVH, motivated to seek outpt treatment. MENTAL STATUS EXAMINATION ON DISCHARGE: General appearance: sunglasses, has stick, casually groomed, vision impaired sensing stick Behavior: superficially related Speech: normal RRVT Thought processes: linear Thought content: appropriate to conversation Judgment: poor Insight: fair Orientation: AAOx3 Mood: "good" Affect: euthymic, reactive MEDICATIONS ON DISCHARGE: - zoloft 50 mg daily for mood - home medications: PLAN/FOLLOWUP ARRANGEMENTS: [facility] The amount of time spent in the coordination of care for this patient was approximately 20 minutes. Vital Signs/I&Os Vital Signs Date Time Temp Pulse Resp B/P (MAP) Pulse Ox O2 Delivery O2 Flow Rate FiO2 08/12/17 06:55 98.8 65 20 110/58 (75) 08/09/17 12:59 98 Room Air Medications Scheduled (Systane Gel 0.4-0.3 %) 1 Ramos Ramos, 1 RAMOS OU QHS for ., (Reported) Sertraline Hcl (Sertraline HCl) 50 Mg Tab, 50 MG PO QHS for DEPRESSION for 7 Days, #7 Topiramate (Topiramate) 100 Mg Tab, 100 MG PO DAILY, (Reported) Scheduled PRN Carboxymethylcellulose Sodium (Refresh Tears) 0.5 % Ramos, 0.5 % OU PRN PRN for DRY EYES, (Reported) Docusate Sodium (Colace) 100 Mg Cap, 100 MG PO DAILY PRN for DAILY, (Reported) Polyethylene Glycol (Miralax) 1 Pow Pow, 17 GM PO DAILY PRN for CONSTIPATION, ( Reported) Trazodone HCl (Trazodone HCl) 50 Mg Tab, 50 MG PO QHSP PRN for INSOMNIA for 7 Days, #7 Allergies Coded Allergies: No Known Drug Allergy (Verified Allergy, Unknown, 03/25/17) NORBERTO BATEMAN MD Aug 12, 2017 13:53
== END 2017-08-12 14:45 | disposition home or self-care (01) | DRG 883 ==
LOC: M ED 09:13 → M ED INP 11:38 → M PSY 12:15
PROVIDERS: ADMIT Psychiatry & Neurology Psychiatry; ATTEND Psychiatry & Neurology Psychiatry
DX: F60.9 Personality disorder, unspecified (principal); F45.0 Somatization disorder; F32.9 Major depressive disorder, single episode, unspecified; G43.709 Chronic migraine without aura, not intractable, without status migrainosus; R19.7 Diarrhea, unspecified; J30.9 Allergic rhinitis, unspecified; Z79.899 Other long term (current) drug therapy

== ENCOUNTER → 2017-10-27 | Outpatient (REF) | payer OTHER ==
[2017-10-27 18:30] LABS: HIV 1&2 SCREEN CENTAUR NEGATIVE (NEGATIVE)
[2017-10-27 19:09] LABS: CHLAMYDIA DNA AMPLIFICATION NEGATIVE (NEGATIVE); GC DNA AMPLIFICATION NEGATIVE (NEGATIVE)
== END ==
LOC: M SFHCWAGY 15:41
DX: Z01.419 Encounter for gynecological examination (general) (routine) without abnormal findings (principal); Z11.3 Encounter for screening for infections with a predominantly sexual mode of transmission; Z11.4 Encounter for screening for human immunodeficiency virus [HIV]
CPT/HCPCS: 36415

== ENCOUNTER → 2017-10-27 | Outpatient (CLI) | payer OTHER | LOC: M WHC 14:47 | DX: Z12.31 Encounter for screening mammogram for malignant neoplasm of breast (principal); Z80.0 Family history of malignant neoplasm of digestive organs | CPT/HCPCS: 77067 ==

== ENCOUNTER → 2017-12-21 | Outpatient (REF) | payer OTHER ==
[2017-12-21 13:18] LABS: BASO % 0.5 % (0.0-1.0); EOS # 0.2 10^3/uL (0.0-0.50); EOS % 2.2 % (0.0-3.0); HEMATOCRIT 35.3 % (36.0-47.0); HEMOGLOBIN 11.1 g/dl (12.0-15.5); IMMATURE GRANULOCYTE % 0.4 % (0-3.0); LYMPH # 2.1 10^3/uL (1.5-4.5); LYMPH % 24.6 % (24.0-44.0); MEAN CORPUSCULAR HEMOGLOBIN 26.2 pg (27.0-33.0); MEAN CORPUSCULAR HGB CONC 31.4 g/dl (32.0-36.5); MEAN CORPUSCULAR VOLUME 83.3 fl (80.0-96.0); MONO # 0.4 10^3/uL (0.0-0.8); NEUTROPHILS # 5.6 10^3/uL (1.8-7.7); NEUTROPHILS % 67.3 % (36.0-66.0); PLATELET COUNT, AUTOMATED 382 10^3/uL (150-450); RED BLOOD COUNT 4.24 10^6/uL (4.00-5.40); RED CELL DISTRIBUTION WIDTH 14.2 % (11.5-14.5); WHITE BLOOD COUNT 8.4 10^3/uL (4.0-10.0)
[2017-12-21 13:40] LABS: CHOLESTEROL LEVEL 177 MG/DL (<200); CHOLESTEROL RISK RATIO 3.765 (<5); HDL CHOLESTEROL 47 MG/DL (>40); IRON (FE) 85 UG/DL (50-170); LDL CHOLESTEROL 94.4 MG/DL (<100); NON-HDL-C 130 MG/DL; TRIGLYCERIDES LEVEL 178 MG/DL (<150)
[2017-12-21 14:08] LABS: ESTIMATED AVERAGE GLUCOSE 91 MG/DL (60-110); HEMOGLOBIN A1c 4.8 %
== END ==
LOC: M LAB REF 12:30
DX: E78.1 Pure hyperglyceridemia (principal); Z13.29 Encounter for screening for other suspected endocrine disorder; E55.9 Vitamin D deficiency, unspecified; Z72.0 Tobacco use
CPT/HCPCS: 83540

== ENCOUNTER 2018-02-11 10:58 | Day surgery (SDC) | payer OTHER ==
[~2018-02-11 10:58] MED LIST changes: -CLAR10CA3 PO; +LIDOCAINE 2% INJ 100 MG/5 ML SDV (FOR ANES.) As Ordered; -MAXA10TA14 PO; -NORT10SO PO; +PROPOFOL 200 MG/20 ML VIAL As Ordered
[2018-02-11] MEDS ORDERED: NS 1,000 ML IV (11:15)
[2018-02-11] MEDS ORDERED: PROPOFOL 200 MG/20 ML VIAL As Ordered (13:20)
== END 2018-02-11 14:45 | disposition home or self-care (01) ==
LOC: M OPP 10:58
DX: R63.4 Abnormal weight loss (principal); K59.00 Constipation, unspecified; D64.9 Anemia, unspecified; Q43.8 Other specified congenital malformations of intestine; K64.8 Other hemorrhoids; R10.9 Unspecified abdominal pain; K29.70 Gastritis, unspecified, without bleeding; I10 Essential (primary) hypertension; F41.9 Anxiety disorder, unspecified; F32.9 Major depressive disorder, single episode, unspecified; F43.10 Post-traumatic stress disorder, unspecified; G43.909 Migraine, unspecified, not intractable, without status migrainosus; G24.5 Blepharospasm; Z79.899 Other long term (current) drug therapy; Z80.0 Family history of malignant neoplasm of digestive organs
CPT/HCPCS: 45378

== ENCOUNTER → 2018-09-12 | Outpatient (REF) | payer OTHER ==
[~2018-09-12] MED LIST changes: +CLAR10CA3 PO; +COLA100C5 PO; +DRIS50003 PO; +FLON1SPR; -LIDOCAINE 2% INJ 100 MG/5 ML SDV (FOR ANES.) As Ordered; +MAGN400C3 PO; +MAXA10TA14 PO; +MELO15TA28 PO; +MIRA3350 PO; +NORT10SO PO; -PROPOFOL 200 MG/20 ML VIAL As Ordered; +QUET1TAB7 PO; +REFR0.5D8 OU; +SERT50TA PO; +SYST0.4D2 OU; +SYST1SOL OU; +TOPI100T9 PO; +TOPR100T13 PO; +TRAZO50TA PO; +VITA500T3 PO; +ZOLO100T PO
[2018-09-12 20:09] LABS: BASO # 0.1 10^3/uL (0.0-0.2); BASO % 0.4 % (0.0-1.0); EOS # 0.2 10^3/uL (0.0-0.50); EOS % 1.4 % (0.0-3.0); HEMATOCRIT 36.2 % (36.0-47.0); HEMOGLOBIN 11.6 g/dl (12.0-15.5); LYMPH # 3.4 10^3/uL (1.5-4.5); LYMPH % 23.8 % (24.0-44.0); MEAN CORPUSCULAR HEMOGLOBIN 25.6 pg (27.0-33.0); MEAN CORPUSCULAR VOLUME 79.7 fl (80.0-96.0); MONO # 0.7 10^3/uL (0.0-0.8); MONO % 5.2 % (0.0-5.0); NEUTROPHILS # 9.7 10^3/uL (1.8-7.7); NEUTROPHILS % 68.7 % (36.0-66.0); PLATELET COUNT, AUTOMATED 459 10^3/uL (150-450); RED BLOOD COUNT 4.54 10^6/uL (4.00-5.40); WHITE BLOOD COUNT 14.2 10^3/uL (4.0-10.0)
[2018-09-12 20:22] LABS: ALT/SGPT 29 U/L (12-78); BILIRUBIN,TOTAL 0.3 MG/DL (0.2-1.0); BLOOD UREA NITROGEN 20 MG/DL (7-18); CARBON DIOXIDE LEVEL 22 MEQ/L (21-32); CHLORIDE LEVEL 105 MEQ/L (98-107); CHOLESTEROL LEVEL 200 MG/DL (<200); CHOLESTEROL RISK RATIO 3.921 (<5); CREATININE FOR GFR 0.85 MG/DL (0.55-1.30); GLOMERULAR FILTRATION RATE > 60.0 (>58); GLUCOSE, FASTING 77 MG/DL (70-100); HDL CHOLESTEROL 51 MG/DL (>40); LDL CHOLESTEROL 120 MG/DL (<100); NON-HDL-C 149 MG/DL; POTASSIUM SERUM 4.1 MEQ/L (3.5-5.1); SODIUM LEVEL 137 MEQ/L (136-145); TOTAL 25(OH) VITAMIN D 17.5 NG/ML (30.0-100.0); TOTAL PROTEIN 8.4 GM/DL (6.4-8.2); TRIGLYCERIDES LEVEL 147 MG/DL (<150)
[2018-09-12 20:56] LABS: HEMOGLOBIN A1c 5.3 %
== END ==
LOC: M LAB REF 19:18
PROVIDERS: ATTEND Nurse Practitioner Family
DX: E78.1 Pure hyperglyceridemia (principal); Z13.9 Encounter for screening, unspecified; E78.5 Hyperlipidemia, unspecified; E66.3 Overweight; E55.9 Vitamin D deficiency, unspecified

== ENCOUNTER 2019-02-16 23:24 | Emergency (ER) | payer OTHER ==
[~2019-02-16] VITALS: Ht 175.3 cm; Wt 82.3 kg
[~2019-02-16 23:24] MED LIST changes: +CYAN500T8 PO; +SERT-141 PO; -SERT50TA PO; +TOPR100T PO; -TOPR100T13 PO; +TRAZ1TAB10 PO; -TRAZO50TA PO; -VITA500T3 PO
[2019-02-17 00:43] LABS: BASO # 0.1 10^3/uL (0.0-0.2); BASO % 0.5 % (0.0-1.0); EOS # 0.2 10^3/uL (0.0-0.50); EOS % 1.3 % (0.0-3.0); HEMATOCRIT 36.6 % (36.0-47.0); HEMOGLOBIN 11.5 g/dl (12.0-15.5); LYMPH # 3.2 10^3/uL (1.5-4.5); LYMPH % 19.6 % (24.0-44.0); MEAN CORPUSCULAR HEMOGLOBIN 25.4 pg (27.0-33.0); MEAN CORPUSCULAR HGB CONC 31.4 g/dl (32.0-36.5); MEAN CORPUSCULAR VOLUME 80.8 fl (80.0-96.0); MONO # 0.8 10^3/uL (0.0-0.8); MONO % 4.6 % (0.0-5.0); NEUTROPHILS # 12.1 10^3/uL (1.8-7.7); NEUTROPHILS % 73.6 % (36.0-66.0); PLATELET COUNT, AUTOMATED 483 10^3/uL (150-450); RED BLOOD COUNT 4.53 10^6/uL (4.00-5.40); WHITE BLOOD COUNT 16.4 10^3/uL (4.0-10.0)
[2019-02-17 01:05] LABS: ALBUMIN 4.1 GM/DL (3.2-5.2); ALT/SGPT 29 U/L (12-78); BILIRUBIN,DIRECT < 0.1 MG/DL (0.0-0.2); BILIRUBIN,TOTAL 0.2 MG/DL (0.2-1.0); BLOOD UREA NITROGEN 17 MG/DL (7-18); CALCIUM LEVEL 9.2 MG/DL (8.5-10.1); CARBON DIOXIDE LEVEL 26 MEQ/L (21-32); CHLORIDE LEVEL 108 MEQ/L (98-107); GLOMERULAR FILTRATION RATE > 60.0 (>58); GLUCOSE, FASTING 128 MG/DL (70-100); LIPASE 280 U/L (73-393); POTASSIUM SERUM 3.7 MEQ/L (3.5-5.1); SODIUM LEVEL 144 MEQ/L (136-145); TOTAL PROTEIN 8.4 GM/DL (6.4-8.2)
[2019-02-17] MEDS ORDERED: GI COCKTAIL 50ML BTL(HYOSCYAMINE/MAALOX/LIDOCAINE VISCOUS)(1:3:1) As Ordered ONE (01:13)
[2019-02-17] MEDS ORDERED: GI COCKTAIL 50ML BTL(HYOSCYAMINE/MAALOX/LIDOCAINE VISCOUS)(1:3:1) PO ONE (01:15)
[2019-02-17] MEDS ORDERED: CARA1TAB6 PO (03:23)
[2019-02-17] MEDS ORDERED: PEPC40TA12 PO (03:23)
[2019-02-17] MEDS ORDERED: OMEP40CA97 PO (03:23)
[2019-02-17] MEDS ORDERED: SUCRALFATE 1 GM TAB PO ONE (03:30)
[2019-02-17] MEDS ORDERED: FAMOTIDINE 20 MG TAB PO ONE (03:30)
[2019-02-17] MEDS ORDERED: OMEPRAZOLE 20 MG CAP PO ONE (03:30)
[2019-02-17 03:37] VITALS: BP 124/78
[2019-04-13] MEDS ORDERED: MAGN400T3 PO (08:14)
[2019-04-13] MEDS ORDERED: TRAZ-252 PO (08:23)
[2019-04-13] MEDS ORDERED: NEUR300C PO (08:23)
[2019-04-13] MEDS ORDERED: VITA100054 PO (08:23)
[2019-04-13] MEDS ORDERED: PROAAER10 INH (08:41)
== END 2019-02-17 03:38 | disposition home or self-care (01) ==
LOC: M ED 23:24
DX: R10.13 Epigastric pain (principal); R11.2 Nausea with vomiting, unspecified; K59.00 Constipation, unspecified; Z79.899 Other long term (current) drug therapy

== ENCOUNTER → 2019-02-20 | Outpatient (REF) | payer OTHER ==
[~2019-02-20] MED LIST changes: +CARA1TAB6 PO; +OMEP40CA2 PO; +PEPC40TA12 PO
[2019-02-20 21:03] LABS: HIV 1&2 SCREEN CENTAUR NEGATIVE (NEGATIVE)
[2019-02-22 10:41] LABS: HEPATITIS B SURFACE ANTIBODY NEGATIVE (POSITIVE)
[2019-02-23 08:58] LABS: HEPATITIS C QUANTITATION HCV Not Detected IU/mL (.)
== END ==
LOC: M LAB REF 18:41
PROVIDERS: ATTEND Nurse Practitioner Family
DX: Z11.3 Encounter for screening for infections with a predominantly sexual mode of transmission (principal)

== ENCOUNTER 2019-03-11 03:15 | Emergency (ER) | payer OTHER ==
[~2019-03-11] VITALS: Ht 175.3 cm; Wt 79.5 kg
[2019-03-11 03:51] LABS: BASO % 0.4 % (0.0-1.0); EOS # 0.3 10^3/uL (0.0-0.50); EOS % 2.5 % (0.0-3.0); HEMATOCRIT 34.1 % (36.0-47.0); HEMOGLOBIN 10.7 g/dl (12.0-15.5); LYMPH # 3.3 10^3/uL (1.5-4.5); LYMPH % 33.5 % (24.0-44.0); MEAN CORPUSCULAR HGB CONC 31.4 g/dl (32.0-36.5); MEAN CORPUSCULAR VOLUME 79.7 fl (80.0-96.0); MONO # 0.7 10^3/uL (0.0-0.8); MONO % 7.2 % (0.0-5.0); NEUTROPHILS # 5.6 10^3/uL (1.8-7.7); NEUTROPHILS % 55.9 % (36.0-66.0); PLATELET COUNT, AUTOMATED 410 10^3/uL (150-450); RED BLOOD COUNT 4.28 10^6/uL (4.00-5.40)
[2019-03-11 04:15] LABS: BLOOD UREA NITROGEN 15 MG/DL (7-18); CALCIUM LEVEL 9.1 MG/DL (8.5-10.1); CARBON DIOXIDE LEVEL 27 MEQ/L (21-32); CHLORIDE LEVEL 111 MEQ/L (98-107); CK-MB VALUE MASS < 1.0 NG/ML (<3.6); CPK CREATINE PHOSPHOKINASE 95 U/L (26-192); CREATININE FOR GFR 0.87 MG/DL (0.55-1.30); GLOMERULAR FILTRATION RATE > 60.0 (>58); GLUCOSE, FASTING 131 MG/DL (70-100); MB/CK RELATIVE INDEX 1.05 (< OR =4); POTASSIUM SERUM 3.6 MEQ/L (3.5-5.1); SODIUM LEVEL 144 MEQ/L (136-145); TROPONIN I < 0.02 NG/ML (< 0.10)
[2019-03-11 05:00] VITALS: BP 108/57
[2019-03-11 05:25] LABS: ALBUMIN 3.8 GM/DL (3.2-5.2); ALT/SGPT 26 U/L (12-78); BILIRUBIN,DIRECT 0.1 MG/DL (0.0-0.2); BILIRUBIN,TOTAL 0.2 MG/DL (0.2-1.0); LIPASE 333 U/L (73-393); TOTAL PROTEIN 7.8 GM/DL (6.4-8.2)
[2019-03-11] MEDS ORDERED: PROT1TAB2 PO (06:18)
--- NOTE | 2019-03-11 06:28 | ECGEPIP ---
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
--- NOTE | 2019-03-12 07:55 | REP ---
CHEST, SINGLE VIEW: There is no evidence of acute infiltrate. No pleural effusion is seen. The heart is normal in size. The mediastinal silhouette is unremarkable. The visualized osseous structures are intact. IMPRESSION: No acute pulmonary disease. Electronically Signed by Pa Alcazar MD 03/12/2019 10:29 P
== END 2019-03-11 06:25 | disposition home or self-care (01) ==
LOC: M ED 03:15
DX: K29.70 Gastritis, unspecified, without bleeding (principal); F60.3 Borderline personality disorder; F60.2 Antisocial personality disorder; K21.9 Gastro-esophageal reflux disease without esophagitis; F43.10 Post-traumatic stress disorder, unspecified; Z79.899 Other long term (current) drug therapy

== ENCOUNTER 2019-04-28 12:27 | Day surgery (SDC) | payer OTHER ==
[~2019-04-28] VITALS: Ht 175.3 cm; Wt 58.6 kg
[~2019-04-28 12:27] MED LIST changes: +MAGN400T PO; +NEUR300C PO; +NS 1,000 ML IV ONE; +PROAAER10 INH; +PROT1TAB2 PO; +TRAZ-252 PO; +VITA100054 PO
[2019-04-28] MEDS ORDERED: LIDOCAINE 2% INJ 100 MG/5 ML SDV (FOR ANES.) As Ordered ONE (13:36)
[2019-04-28] MEDS ORDERED: PROPOFOL 200 MG/20 ML VIAL As Ordered ONE (13:36)
[2019-04-28] MEDS ORDERED: fentaNYL 100 MCG/2 ML INJECTION (J3010) As Ordered ONE (13:49)
--- NOTE | 2019-04-28 15:30 | ROOR ---
Patient Name: Batool Dhaliwal Procedure Date: 04/28/2019 3:01 PM Date of : 1975 Age: 43 Room: [facility] Gender: Female Note Status: Finalized Procedure: Upper GI endoscopy Indications: Epigastric abdominal pain, Previously treated for Helicobacter pylori, Follow-up of Helicobacter pylori Providers: Ez Veronica MD Referring MD: Lourdes PADRON NP Requesting Provider: Medicines: Monitored Anesthesia Care Complications: No immediate complications. Procedure: Pre-Anesthesia Assessment: - Prior to the procedure, a History and Physical was performed, and patient medications and allergies were reviewed. The patient is competent. The risks and benefits of the procedure and the sedation options and risks were discussed with the patient. All questions were answered and informed consent was obtained. Patient identification and proposed procedure were verified by the physician, the nurse and the anesthesiologist in the procedure room. Mental Status Examination: alert and oriented. Airway Examination: normal oropharyngeal airway and neck mobility. Respiratory Examination: clear to auscultation. CV Examination: normal. Prophylactic Antibiotics: The patient does not require prophylactic antibiotics. Prior Anticoagulants: The patient has taken no previous anticoagulant or antiplatelet agents. ASA Grade Assessment: II - A patient with mild systemic disease. After reviewing the risks and benefits, the patient was deemed in satisfactory condition to undergo the procedure. The anesthesia plan was to use monitored anesthesia care (MAC). Immediately prior to administration of medications, the patient was re-assessed for adequacy to receive sedatives. The heart rate, respiratory rate, oxygen saturations, blood pressure, adequacy of pulmonary ventilation, and response to care were monitored throughout the procedure. The physical status of the patient was re-assessed after the procedure. The Endoscope was introduced through the mouth, and advanced to the second part of duodenum. The upper GI endoscopy was accomplished without difficulty. The patient tolerated the procedure well. Findings: The Z-line was regular and was found 40 cm from the incisors. Scattered moderate inflammation characterized by erythema, friability and granularity was found in the gastric body and in the gastric antrum. Biopsies were taken with a cold forceps for Helicobacter pylori testing. Verification of patient identification for the specimen was done by the physician and nurse using the patient's name, date and medical record number. Estimated blood loss was minimal. The duodenal bulb and second portion of the duodenum were normal. Impression: - Z-line regular, 40 cm from the incisors. - Gastritis. Biopsied. - Normal duodenal bulb and second portion of the duodenum. Recommendation: - Patient has a contact number available for emergencies. The signs and symptoms of potential delayed complications were discussed with the patient. Return to normal activities tomorrow. Written discharge instructions were provided to the patient. - Resume previous diet. - Continue present medications. - Await pathology results. - Telephone GI clinic for pathology results in 2 weeks. - Return to primary care physician. Ez Veronica MD Ez Veronica MD 04/28/2019 3:29:50 PM Electronically signed by Ez Veronica MD Number of Addenda: 0 Note Initiated On: 04/28/2019 3:01 PM Estimated Blood Loss: Estimated blood loss was minimal.
[2019-04-28 15:50] VITALS: BP 108/61
== END 2019-04-28 18:20 | disposition home or self-care (01) ==
LOC: M OPP 12:27
PROVIDERS: ATTEND Internal Medicine Gastroenterology
DX: K29.70 Gastritis, unspecified, without bleeding (principal); R10.13 Epigastric pain; Z87.19 Personal history of other diseases of the digestive system; B96.81 Helicobacter pylori [H. pylori] as the cause of diseases classified elsewhere; G47.30 Sleep apnea, unspecified; Z79.899 Other long term (current) drug therapy; Z91.040 Latex allergy status; Z91.018 Allergy to other foods
CPT/HCPCS: 43239; 88305; 88313; J3010

== ENCOUNTER → 2019-05-31 | Outpatient (REF) | payer OTHER ==
[~2019-05-31] MED LIST changes: -NS 1,000 ML IV ONE
[2019-05-31 12:55] LABS: BASO # 0.1 10^3/uL (0.0-0.2); BASO % 0.6 % (0.0-1.0); EOS # 0.1 10^3/uL (0.0-0.5); EOS % 1.3 % (0.0-3.0); HEMATOCRIT 36.8 % (36.0-47.0); HEMOGLOBIN 11.3 g/dl (12.0-15.5); LYMPH # 3.1 10^3/uL (1.5-5.0); LYMPH % 28.3 % (24.0-44.0); MEAN CORPUSCULAR HEMOGLOBIN 24.1 pg (27.0-33.0); MEAN CORPUSCULAR HGB CONC 30.7 g/dl (32.0-36.5); MEAN CORPUSCULAR VOLUME 78.5 fl (80.0-96.0); MONO # 0.6 10^3/uL (0.0-0.8); MONO % 5.8 % (0.0-5.0); NEUTROPHILS # 6.8 10^3/uL (1.5-8.5); NEUTROPHILS % 63.1 % (36.0-66.0); PLATELET COUNT, AUTOMATED 468 10^3/uL (150-450); RED BLOOD COUNT 4.69 10^6/uL (4.00-5.40); WHITE BLOOD COUNT 10.8 10^3/uL (4.0-10.0)
[2019-05-31 13:07] LABS: ALBUMIN 4.1 GM/DL (3.2-5.2); ALT/SGPT 21 U/L (12-78); BILIRUBIN,TOTAL 0.5 MG/DL (0.2-1.0); BLOOD UREA NITROGEN 17 MG/DL (7-18); CALCIUM LEVEL 9.4 MG/DL (8.5-10.1); CARBON DIOXIDE LEVEL 22 MEQ/L (21-32); CHLORIDE LEVEL 107 MEQ/L (98-107); CHOLESTEROL LEVEL 212 MG/DL (<200); CHOLESTEROL RISK RATIO 3.655 (<5); CREATININE FOR GFR 0.67 MG/DL (0.55-1.30); GLOMERULAR FILTRATION RATE > 60.0 (>58); GLUCOSE, FASTING 90 MG/DL (70-100); HDL CHOLESTEROL 58 MG/DL (>40); LDL CHOLESTEROL 121 MG/DL (<100); NON-HDL-C 154 MG/DL; POTASSIUM SERUM 4.3 MEQ/L (3.5-5.1); SODIUM LEVEL 139 MEQ/L (136-145); TOTAL PROTEIN 8.4 GM/DL (6.4-8.2); TRIGLYCERIDES LEVEL 164 MG/DL (<150)
[2019-05-31 13:56] LABS: TOTAL 25(OH) VITAMIN D 34.9 NG/ML (30.0-100.0)
== END ==
LOC: M LAB REF 12:12
PROVIDERS: ATTEND Nurse Practitioner Family
DX: R10.10 Upper abdominal pain, unspecified (principal); E78.5 Hyperlipidemia, unspecified; E55.9 Vitamin D deficiency, unspecified; G43.009 Migraine without aura, not intractable, without status migrainosus

== ENCOUNTER → 2019-08-29 | Outpatient (CLI) | payer MEDICAID, OTHER ==
[~2019-08-29] MED LIST changes: -MAGN400T PO; +MAGN400T3 PO; -OMEP40CA2 PO; +OMEP40CA97 PO
--- NOTE | 2019-08-29 10:17 | REPMRS ---
Patient History Family history of colorectal cancer at age 50 or over in maternal aunt. Digital Woman Screen Mammo: August 29, 2019 - Exam #: [id number] Bilateral CC and MLO view(s) were taken. Technologist: Gissel Patel, Technologist Prior study comparison: October 27, 2017, digital woman screen mammo performed at [facility]. January 08, 2016, digital woman screen mammo performed at [facility]. FINDINGS: The breast tissue is heterogeneously dense. This may lower the sensitivity of mammography. There is a moderate amount of heterogeneously dense fibroglandular tissue which is fairly symmetric. There is no interval development of dominant mass, architectural distortion, or grouped microcalcification typical of malignancy. There has been no change in the appearance of the mammogram from the prior studies. 3-D tomosynthesis shows no additional findings. Assessment: BI-RADS/ACR category 1 mammogram. Negative Mammogram. Recommendation Routine screening mammogram of both breasts in 1 year (for women over age 40). This patient's Lifetime Breast Cancer RIsk is estimated at 10.3 %. This mammogram was interpreted with the aid of an FDA-approved computer-aided dectection system. Electronically Signed By: Pato Red MD 08/29/19 1016
== END ==
LOC: M WHC 08:07
PROVIDERS: ATTEND Nurse Practitioner Family
DX: Z12.31 Encounter for screening mammogram for malignant neoplasm of breast (principal)

== ENCOUNTER → 2019-08-29 | Outpatient (REF) | payer OTHER | LOC: M PLALAB 09:01 | PROVIDERS: ATTEND Nurse Practitioner Family | DX: Z12.4 Encounter for screening for malignant neoplasm of cervix (principal) ==

== ENCOUNTER → 2020-01-02 | Outpatient (CLI) | payer OTHER ==
[~2020-01-02] MED LIST changes: +IMMU1CHW PO; +IRON1TAB2 PO; +MULT1TAB7 PO; +NORC1TAB7 PO; +VITA1TAB23 PO
== END ==
LOC: M LABSMTC 09:31
PROVIDERS: ATTEND Anesthesiology
DX: Z01.812 Encounter for preprocedural laboratory examination (principal); Z11.59 Encounter for screening for other viral diseases
CPT/HCPCS: C8903; U0003

== ENCOUNTER → 2020-01-04 | Outpatient (REF) | payer OTHER ==
[2020-01-04 13:40] LABS: BASO # 0.1 10^3/uL (0.0-0.2); BASO % 0.5 % (0.0-1.0); EOS # 0.2 10^3/uL (0.0-0.5); EOS % 1.4 % (0.0-3.0); HEMATOCRIT 37.4 % (36.0-47.0); HEMOGLOBIN 11.9 g/dl (12.0-15.5); LYMPH # 2.3 10^3/uL (1.5-5.0); LYMPH % 21.7 % (24.0-44.0); MEAN CORPUSCULAR HEMOGLOBIN 26.4 pg (27.0-33.0); MEAN CORPUSCULAR HGB CONC 31.8 g/dl (32.0-36.5); MEAN CORPUSCULAR VOLUME 82.9 fl (80.0-96.0); MONO # 0.6 10^3/uL (0.0-0.8); MONO % 5.6 % (0.0-5.0); NEUTROPHILS # 7.5 10^3/uL (1.5-8.5); NEUTROPHILS % 70.1 % (36.0-66.0); PLATELET COUNT, AUTOMATED 445 10^3/uL (150-450); RED BLOOD COUNT 4.51 10^6/uL (4.00-5.40); WHITE BLOOD COUNT 10.7 10^3/uL (4.0-10.0)
[2020-01-04 13:52] LABS: ALBUMIN 3.9 GM/DL (3.2-5.2); ALT/SGPT 37 U/L (12-78); BILIRUBIN,TOTAL 0.4 MG/DL (0.2-1.0); BLOOD UREA NITROGEN 16 MG/DL (7-18); CALCIUM LEVEL 8.9 MG/DL (8.5-10.1); CARBON DIOXIDE LEVEL 26 MEQ/L (21-32); CHLORIDE LEVEL 108 MEQ/L (98-107); CHOLESTEROL LEVEL 191 MG/DL (<200); CHOLESTEROL RISK RATIO 3.673 (<5); CREATININE FOR GFR 0.66 MG/DL (0.55-1.30); FREE T4 0.93 NG/DL (0.76-1.46); GLOMERULAR FILTRATION RATE > 60.0 (>58); GLUCOSE, FASTING 96 MG/DL (70-100); HDL CHOLESTEROL 52 MG/DL (>40); LDL CHOLESTEROL 115 MG/DL (<100); NON-HDL-C 139 MG/DL; POTASSIUM SERUM 4.5 MEQ/L (3.5-5.1); SODIUM LEVEL 141 MEQ/L (136-145); TRIGLYCERIDES LEVEL 122 MG/DL (<150)
== END ==
LOC: M LAB REF 12:11
PROVIDERS: ATTEND Nurse Practitioner Family
DX: Z13.9 Encounter for screening, unspecified (principal); M25.562 Pain in left knee; E78.1 Pure hyperglyceridemia; E66.3 Overweight; G43.009 Migraine without aura, not intractable, without status migrainosus; E78.5 Hyperlipidemia, unspecified

== ENCOUNTER 2020-01-05 06:04 | Day surgery (SDC) | payer OTHER ==
[~2020-01-05] VITALS: Ht 175.3 cm; Wt 86.6 kg
[~2020-01-05 06:04] MED LIST changes: +LIDOCAINE 1% MDV 20ML VIAL SQ PRN; -NORC1TAB7 PO
[2020-01-05] MEDS ORDERED: LR 1,000 ML IV ONE (07:00)
[2020-01-05] MEDS ORDERED: LIDOCAINE 1% SDV 30ML VIAL As Ordered ONE (07:10)
[2020-01-05] MEDS ORDERED: BUPIVACAINE HCL 0.25% 30ML VIAL As Ordered ONE (07:10)
[2020-01-05] MEDS ORDERED: propofoL 200 MG/20 ML VIAL As Ordered ONE ×2 (07:46→07:47)
[2020-01-05] MEDS ORDERED: MIDAZOLAM INJ 2MG/2ML VIAL (J2250 PER 1MG) As Ordered ONE (07:47)
[2020-01-05] MEDS ORDERED: LIDOCAINE 2% 100MG/5ML SDV (FOR ANES.) As Ordered ONE (07:47)
[2020-01-05] MEDS ORDERED: fentaNYL 100 MCG/2 ML INJECTION (J3010) As Ordered ONE (07:47)
[2020-01-05] MEDS ORDERED: diphenhydrAMINE 50MG/ML VIAL (J1200) As Ordered ONE (07:47)
[2020-01-05] MEDS ORDERED: dexameTHASONE 4 MG/ML 1ML VIAL (J1100 PER 1MG) As Ordered ONE (07:47)
[2020-01-05] MEDS ORDERED: METOCLOPRAMIDE INJ 10MG/2ML VIAL (J2765 PER 1) As Ordered ONE (07:47)
[2020-01-05] MEDS ORDERED: ONDANSETRON 4MG/2ML VIAL As Ordered ONE (07:47)
[2020-01-05] MEDS ORDERED: KETOROLAC 60 MG/2 ML VIAL As Ordered ONE (07:48)
[2020-01-05] MEDS ORDERED: ePHEDrine SULFATE 25 MG/5 ML(5MG/ML) SYRINGE As Ordered ONE (08:02)
--- NOTE | 2020-01-05 08:50 | ROOPDOC ---
[facility] Report Of Operation Report of Operation DATE OF PROCEDURE: 01/05/20 PREPROCEDURE DIAGNOSES: Lipoma left lower abdominal wall. POSTPROCEDURE DIAGNOSES: Lipoma left lower abdominal wall. PROCEDURE: Excision of lipoma, left lower abdominal wall. SURGEON: Melvin Florian MD PHYSICAL THERAPIST: ANESTHESIA: Local anesthesia with 1% lidocaine and 1/4% Marcaine, monitored anesthesia care. ESTIMATED BLOOD LOSS: Approximately 10 mL. COMPLICATIONS: None. REMARKS: 5 x 4 cm lobulated fatty tissue with a filmy capsule consistent with lipoma. DESCRIPTION OF PROCEDURE: Patient was brought to the operating room, placed in a slight right lateral decubitus position, monitoring leads placed and IV sedation provided. She has a long-standing subcutaneous lump on the left lower abdomen that has increased in size and has started to bother her roughly about 5 x 5 cm externally. The area in the left lower abdomen was prepped and draped in usual sterile fashion.We paused for a surgical timeout using both pre-incision safety checklist to verify correct patient, procedure site and additional clinical information prior to beginning the procedure The surrounding skin and subcutaneous tissue was infiltrated with local anesthesia as well as transversely across the skin for the planned site of incision. A transverse incision along the top of the palpable nodularity was t hen performed and slowly deepened through the superficial subcutaneous tissue until the lipoma was encountered. Bleeding points around the incision were cauterized. Mostly by blunt dissection was able to get around the fatty lobulated tissue and remove this and tacked. Roughly measures 5 x 4 cm. A small of blurred left over nodular lipoma was removed on the inferior side. Hemostasis was assured with Bovie cautery. The incision was then closed in layers with 3-0 Vicryl at the subcutaneous space and 4-0 Monocryl in subsequent fashion to close the skin. Dermabond was then used for postoperative dressing. Patient tolerated procedure well she was promptly awakened, brought to recovery room in stable condition.. MELVIN FLORIAN MD January 05, 2020 08:50
[2020-01-05 12:00] VITALS: BP 119/68
[2020-01-05] MEDS ORDERED: NORC1TAB7 PO (12:29)
--- NOTE | 2020-01-05 20:11 | ECGEPIP ---
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
== END 2020-01-05 13:08 | disposition home or self-care (01) ==
LOC: M SDC 06:04
PROVIDERS: ATTEND Surgery
DX: D17.1 Benign lipomatous neoplasm of skin and subcutaneous tissue of trunk (principal); J45.909 Unspecified asthma, uncomplicated; G43.909 Migraine, unspecified, not intractable, without status migrainosus; F43.10 Post-traumatic stress disorder, unspecified; F32.9 Major depressive disorder, single episode, unspecified; F41.9 Anxiety disorder, unspecified; Z91.040 Latex allergy status; Z91.018 Allergy to other foods; Z79.899 Other long term (current) drug therapy
CPT/HCPCS: 11406; 81025; 88304; 93005; J1100; J1200; J1885; J2250; J2405; J2765; J3010

== ENCOUNTER 2020-02-22 20:02 | Emergency (ER) | payer MEDICAID, OTHER ==
[~2020-02-22] VITALS: Ht 175.3 cm; Wt 89.5 kg
[~2020-02-22 20:02] MED LIST changes: -LIDOCAINE 1% MDV 20ML VIAL SQ PRN; +NORC1TAB7 PO
[2020-02-22] MEDS ORDERED: NORCO, ANEXSIA 5/325MG TABLET (HYDROcodone/ACETAMINOPHEN) PO ONE (21:00)
[2020-02-22] MEDS ORDERED: BACITRACIN OINTMENT 30GM TUBE TOP STA (21:35)
--- NOTE | 2020-02-22 23:25 | REPVR ---
PROCEDURE INFORMATION: Exam: XR Right Elbow Exam date and time: 02/22/2020 9:20 PM Age: 44 years old Clinical indication: Injury or trauma; Fall; Initial encounter; Abrasion; Elbow; Bilateral; Additional info: Fall, severe PT tender, decr. Rom TECHNIQUE: Imaging protocol: XR Right elbow. Views: 3 or more views. COMPARISON: No relevant prior studies available. FINDINGS: Bones/joints: There is a moderate joint effusion. There is a subtle nondisplaced fracture of the base of the radial head. No other fracture is seen. Normal alignment. Soft tissues: Mild soft tissue swelling. IMPRESSION: Nondisplaced radial head fracture. PROCEDURE INFORMATION: Exam: XR Left Elbow Exam date and time: 02/22/2020 9:20 PM Age: 44 years old Clinical indication: Injury or trauma; Fall; Initial encounter; Abrasion; Elbow; Bilateral; Additional info: Fall, severe PT tender, decr. Rom TECHNIQUE: Imaging protocol: XR Left elbow. Views: 3 or more views. COMPARISON: No relevant prior studies available. FINDINGS: Bones/joints: There is a nondisplaced slightly impacted fracture of the base of the radial head. No other fractures are seen. Normal alignment. Small elbow joint effusion. Soft tissues: Mild soft tissue swelling. IMPRESSION: Mildly impacted radial head fracture. Electronically signed by: Vamsi Child On 02/22/2020 23:24:58 PM
[2020-02-22 23:45] VITALS: BP 115/74
[2020-02-22] MEDS ORDERED: NORC1TAB7 PO (23:56)
[2020-02-23] MEDS ORDERED: NORCO 5/325MG TABLET (BULK FOR ED) PO ONE
--- NOTE | 2020-02-23 08:10 | REP ---
Clinical: Trauma. Fall. Technique: AP, lateral views of the right forearm. Findings: The osseous structures and joint spaces are intact and normal. There is no evidence for acute fracture or dislocation. Surrounding soft tissues are unremarkable. No subcutaneous emphysema or radiodense foreign body. Impression: No acute fracture or dislocation. Electronically Signed by Prem Campo MD 02/23/2020 08:01 A
--- NOTE | 2020-02-23 08:13 | REP ---
Clinical: Trauma. Technique: AP, lateral, bilateral oblique views left wrist . Findings: The carpal bones, surrounding osseous structures, soft tissues, and joint spaces are normal. There is no evidence for acute fracture or dislocation. No subcutaneous emphysema or radiodense foreign body. Impression: Normal wrist series. No acute fracture or dislocation. If the patient remains symptomatic consider reevaluation in 3-5 days including scaphoid view if necessary. Electronically Signed by Prem Campo MD 02/23/2020 08:04 A
--- NOTE | 2020-02-23 08:14 | REP ---
Clinical: Trauma. Fall. Technique: Internal rotation, external rotation, and Y view of the left shoulder. Findings: Generalized age-related changes at the acromioclavicular joint. No acute fracture dislocation. Subacromial space is normal. Surrounding soft tissues are unremarkable. Impression: Age-appropriate left shoulder radiographs. No acute fracture or dislocation. Electronically Signed by Prem Campo MD 02/23/2020 08:05 A
== END 2020-02-23 00:13 | disposition home or self-care (01) ==
LOC: M ED 20:02
DX: S52.121A Displaced fracture of head of right radius, initial encounter for closed fracture (principal); S52.122A Displaced fracture of head of left radius, initial encounter for closed fracture; S80.211A Abrasion, right knee, initial encounter; S50.812A Abrasion of left forearm, initial encounter; W01.0XXA Fall on same level from slipping, tripping and stumbling without subsequent striking against object, initial encounter; Y92.018 Other place in single-family (private) house as the place of occurrence of the external cause; J45.909 Unspecified asthma, uncomplicated; Z79.899 Other long term (current) drug therapy; Z91.018 Allergy to other foods; Z91.040 Latex allergy status

== ENCOUNTER 2020-03-18 09:15 | Outpatient (RCR) | payer OTHER ==
[~2020-03-18 09:15] MED LIST changes: +ASCO250T20 PO; -VITA1TAB23 PO
[2020-05-17] MEDS ORDERED: AJOV225I (08:47)
== END 2020-03-22 | disposition home or self-care (01) ==
LOC: M PT 09:15
PROVIDERS: ATTEND Orthopaedic Surgery Sports Medicine
DX: S52.131A Displaced fracture of neck of right radius, initial encounter for closed fracture (principal); X58.XXXA Exposure to other specified factors, initial encounter; Y92.9 Unspecified place or not applicable

== ENCOUNTER → 2020-04-08 | Outpatient (REF) | payer OTHER, MEDICAID ==
[~2020-04-08] MED LIST changes: +AJOV225I
[2020-05-24 14:40] LABS: BASO # 0.1 10^3/uL (0.0-0.2); BASO % 0.5 % (0.0-1.0); EOS # 0.3 10^3/uL (0.0-0.5); EOS % 2.3 % (0.0-3.0); HEMATOCRIT 39.6 % (36.0-47.0); HEMOGLOBIN 12.7 g/dl (12.0-15.5); LYMPH # 3.6 10^3/uL (1.5-5.0); LYMPH % 31.3 % (24.0-44.0); MEAN CORPUSCULAR HEMOGLOBIN 26.8 pg (27.0-33.0); MEAN CORPUSCULAR HGB CONC 32.1 g/dl (32.0-36.5); MEAN CORPUSCULAR VOLUME 83.5 fl (80.0-96.0); MONO # 0.6 10^3/uL (0.0-0.8); MONO % 5.2 % (0.0-5.0); NEUTROPHILS # 6.9 10^3/uL (1.5-8.5); NEUTROPHILS % 60.1 % (36.0-66.0); PLATELET COUNT, AUTOMATED 473 10^3/uL (150-450); RED BLOOD COUNT 4.74 10^6/uL (4.00-5.40); WHITE BLOOD COUNT 11.4 10^3/uL (4.0-10.0)
[2020-06-03 23:52] LABS: ALBUMIN 3.9 GM/DL (3.2-5.2); ALT/SGPT 43 U/L (12-78); BILIRUBIN,TOTAL 0.3 MG/DL (0.2-1.0); BLOOD UREA NITROGEN 12 MG/DL (7-18); CALCIUM LEVEL 9.2 MG/DL (8.5-10.1); CARBON DIOXIDE LEVEL 24 MEQ/L (21-32); CHLORIDE LEVEL 109 MEQ/L (98-107); CHOLESTEROL LEVEL 199 MG/DL (<200); CHOLESTEROL RISK RATIO 4.234 (<5); CREATININE FOR GFR 0.78 MG/DL (0.55-1.30); GLOMERULAR FILTRATION RATE > 60.0 (>58); GLUCOSE, FASTING 96 MG/DL (70-100); HDL CHOLESTEROL 47 MG/DL (>40); LDL CHOLESTEROL 111 MG/DL (<100); NON-HDL-C 152 MG/DL; POTASSIUM SERUM 4.3 MEQ/L (3.5-5.1); SODIUM LEVEL 139 MEQ/L (136-145); TOTAL 25(OH) VITAMIN D 24.2 NG/ML (30.0-100.0); TOTAL PROTEIN 8.1 GM/DL (6.4-8.2); TRIGLYCERIDES LEVEL 205 MG/DL (<150)
== END ==
LOC: M LAB REF 11:01
PROVIDERS: ATTEND Nurse Practitioner Family
DX: Z13.9 Encounter for screening, unspecified (principal); K59.04 Chronic idiopathic constipation; E78.1 Pure hyperglyceridemia; E55.9 Vitamin D deficiency, unspecified; E78.5 Hyperlipidemia, unspecified; E66.3 Overweight

== ENCOUNTER 2020-04-10 09:15 | Outpatient (RCR) | payer OTHER ==
[~2020-04-10 09:15] MED LIST changes: -AJOV225I
[2020-05-17] MEDS ORDERED: AJOV225I (08:47)
== END 2020-04-22 ==
LOC: M PT 09:15
PROVIDERS: ATTEND Orthopaedic Surgery Sports Medicine
DX: S52.131A Displaced fracture of neck of right radius, initial encounter for closed fracture (principal); X58.XXXA Exposure to other specified factors, initial encounter; Y92.9 Unspecified place or not applicable

== ENCOUNTER → 2020-05-19 | Outpatient (CLI) | payer OTHER ==
[~2020-05-19] MED LIST changes: +AJOV225I
== END ==
LOC: M LABSMTC 08:29
PROVIDERS: ATTEND Anesthesiology
DX: Z01.812 Encounter for preprocedural laboratory examination (principal); Z20.828 Contact with and (suspected) exposure to other viral communicable diseases
CPT/HCPCS: C9803; U0003

== ENCOUNTER 2020-05-21 09:06 | Outpatient (RCR) | payer OTHER | END 2020-05-22 | LOC: M PT 09:06 | PROVIDERS: ATTEND Orthopaedic Surgery Sports Medicine | DX: S52.131D Displaced fracture of neck of right radius, subsequent encounter for closed fracture with routine healing (principal); W18.30XD Fall on same level, unspecified, subsequent encounter; Y92.9 Unspecified place or not applicable ==

== ENCOUNTER 2020-05-24 06:16 | Day surgery (SDC) | payer OTHER ==
[~2020-05-24] VITALS: Ht 175.3 cm; Wt 92.1 kg
[2020-05-24] MEDS ORDERED: LR 1,000 ML IV ONE (07:00)
[2020-05-24] MEDS ORDERED: ceFAZolin SOD 2 GM in IV 1 EA IV ONE (07:00)
[2020-05-24] MEDS ORDERED: LIDOCAINE 1% SDV 30ML VIAL As Ordered ONE (07:13)
[2020-05-24] MEDS ORDERED: LIDOCAINE W/EPINEPHRINE 1% 20ML VIAL As Ordered ONE (07:13)
[2020-05-24] MEDS ORDERED: dexameTHASONE 4 MG/ML 1ML VIAL (J1100 PER 1MG) As Ordered ONE (07:23)
[2020-05-24] MEDS ORDERED: KETOROLAC 60MG 2ML VIAL As Ordered ONE (07:23)
[2020-05-24] MEDS ORDERED: propofoL 200 MG/20 ML VIAL As Ordered ONE (07:23)
[2020-05-24] MEDS ORDERED: fentaNYL 100 MCG/2 ML INJECTION (J3010) As Ordered ONE (07:23)
[2020-05-24] MEDS ORDERED: ONDANSETRON 4MG/2ML VIAL As Ordered ONE (07:23)
[2020-05-24] MEDS ORDERED: LIDOCAINE 2% 100MG/5ML SDV (FOR ANES.) As Ordered ONE (07:23)
[2020-05-24] MEDS ORDERED: MIDAZOLAM INJ 2MG/2ML VIAL (J2250 PER 1MG) As Ordered ONE (07:24)
[2020-05-24] MEDS ORDERED: BUPIVACAINE HCL 0.25% 30ML VIAL As Ordered ONE (07:47)
[2020-05-24] MEDS ORDERED: fentaNYL 100 MCG/2 ML INJECTION (J3010) IV PRN (09:00)
[2020-05-24] MEDS ORDERED: METOCLOPRAMIDE INJ 10MG/2ML VIAL (J2765 PER 1) IV PRN (09:00)
[2020-05-24] MEDS ORDERED: ONDANSETRON 4MG/2ML VIAL IV PRN (09:00)
[2020-05-24] MEDS ORDERED: PERCOCET 5MG/325MG TAB PO PRN ×2 (09:00)
[2020-05-24 10:15] VITALS: BP 124/72
--- NOTE | 2020-06-06 10:48 | ROOPDOC ---
[facility] Report Of Operation Report of Operation DATE OF PROCEDURE: 05/24/20 PREPROCEDURE DIAGNOSES: right nipple cyst. POSTPROCEDURE DIAGNOSES: right nipple cyst. PROCEDURE: Excision of right nipple cyst enucleation). SURGEON: Melvin Florian MD COMMUNITY RELATIONS DIRECTOR: ANESTHESIA: General Anesthesia. ESTIMATED BLOOD LOSS: Approximately 5 mL. COMPLICATIONS: none. REMARKS: roughly a 1.5 cm cyst with capsule intact removed from the lateral portion of the nipple edge. DESCRIPTION OF PROCEDURE: Patient was given a dose of Ancef 2 g IV for preoperative wound prophylaxis. She was brought to the operating room, placed supine on the table compression boots placed in both lower extremities were DVT prophylaxis.. Gen. endotracheal an esthesia started. Her right breast, chest and neck and shoulder prepped and draped in usual sterile fashion. We paused for a surgical timeout using both pre-incision safety checklist to verify correct patient, procedure site and additional clinical information prior to beginning the procedure Patient roughly about of 1.5 cm yellowish cystic nodule located on the patient's lateral nipple that does not seem to be tethered to underlying tissue. The area surrounding this was infiltrated with local anesthesia using a mixture of 1% lidocaine and 1/4% Marcaine. I then created a cruciate skin incision on top of the palpable nodularity and dissected the cyst capsule which is just located underneath the skin, This came off easily and appears benign in character. This was removed intact. After hemostasis this was closed in layers using 3-0 Vicryl at the subcutaneous space and 4-0 Monocryl to close the skin incision. I initially placed Dermabond dressing but there was some persistent oozing so I again reinforced that area with 4-0 Monocryl and placed Steri-Strips and gauze dressings as well as Tegaderm to cover the incision. Patient tolerated procedure well she was awakened, extubated and brought to recovery room in stable condition. MELVIN FLORIAN MD Jun 06, 2020 10:48
== END 2020-05-24 10:28 | disposition home or self-care (01) ==
LOC: M SDC 06:16
PROVIDERS: ATTEND Surgery
DX: L72.0 Epidermal cyst (principal); N60.81 Other benign mammary dysplasias of right breast; Z87.891 Personal history of nicotine dependence; F32.9 Major depressive disorder, single episode, unspecified; F41.9 Anxiety disorder, unspecified; Z91.040 Latex allergy status; G43.909 Migraine, unspecified, not intractable, without status migrainosus
CPT/HCPCS: 11402; 81025; 88305; J0690; J1100; J1885; J2250; J2405; J3010

== ENCOUNTER → 2020-09-11 | Outpatient (CLI) | payer OTHER ==
[~2020-09-11] MED LIST changes: +CYAN500T14 PO; -CYAN500T8 PO; -QUET1TAB7 PO; +QUET25TA3 PO
--- NOTE | 2020-09-11 10:25 | REPMRS ---
Patient History The patient states she had a clinical breast exam in August 2020. Family history of colorectal cancer at age 50 or over in maternal aunt. 3D TOMOSYNTHESIS WAS PERFORMED. The Sil Wallace lifetime risk for breast cancer is 10.2%. [place]para breast density b. Digital Woman Screen Mammo: September 11, 2020 - Exam #: [id number] Bilateral CC and MLO view(s) were taken. Technologist: Zenaida Obando, Technologist Prior study comparison: August 29, 2019, bilateral digital woman screen mammo performed at [facility]. October 27, 2017, digital woman screen mammo performed at [facility]. FINDINGS: There are scattered fibroglandular densities. There has been no change in the appearance of the mammogram from the prior studies. There is a mild amount of residual fibroglandular tissue which is fairly symmetric. There is no interval development of dominant mass, architectural distortion, or clustered microcalcification suggestive of malignancy. Assessment: BI-RADS/ACR category 1 mammogram. Negative Mammogram. Recommendation Routine screening mammogram in 1 year (for women over age 40). This mammogram was interpreted with the aid of an FDA-approved computer-aided dectection system. Electronically Signed By: Pa Alcazar MD 09/11/20 1715
== END ==
LOC: M WHC 09:15
PROVIDERS: ATTEND Nurse Practitioner Family
DX: Z12.31 Encounter for screening mammogram for malignant neoplasm of breast (principal)

== ENCOUNTER 2020-09-17 13:00 | Outpatient (RCR) | payer OTHER ==
[~2020-09-17 13:00] MED LIST changes: +QUET1TAB7 PO; -QUET25TA3 PO
== END 2020-09-22 ==
LOC: M PT 13:00
PROVIDERS: ATTEND Orthopaedic Surgery Sports Medicine
DX: S52.131D Displaced fracture of neck of right radius, subsequent encounter for closed fracture with routine healing (principal); S52.134D Nondisplaced fracture of neck of right radius, subsequent encounter for closed fracture with routine healing; S52.135D Nondisplaced fracture of neck of left radius, subsequent encounter for closed fracture with routine healing; X58.XXXD Exposure to other specified factors, subsequent encounter

== ENCOUNTER 2020-10-15 08:55 | Outpatient (RCR) | payer OTHER ==
[~2020-10-15 08:55] MED LIST changes: -QUET1TAB7 PO; +QUET25TA3 PO
== END 2020-10-20 ==
LOC: M PT 08:55
PROVIDERS: ATTEND Orthopaedic Surgery Sports Medicine
DX: S52.131D Displaced fracture of neck of right radius, subsequent encounter for closed fracture with routine healing (principal); S52.134D Nondisplaced fracture of neck of right radius, subsequent encounter for closed fracture with routine healing; S52.135D Nondisplaced fracture of neck of left radius, subsequent encounter for closed fracture with routine healing

== ENCOUNTER 2020-10-31 10:40 | Outpatient (RCR) | payer OTHER | END 2020-11-20 | LOC: M PT 10:40 | PROVIDERS: ATTEND Orthopaedic Surgery Sports Medicine | DX: S52.134D Nondisplaced fracture of neck of right radius, subsequent encounter for closed fracture with routine healing (principal); S52.135D Nondisplaced fracture of neck of left radius, subsequent encounter for closed fracture with routine healing ==

== ENCOUNTER → 2021-05-14 | Outpatient (CLI) | payer OTHER ==
[~2021-05-14] MED LIST changes: +OMEP40CA4 PO; -OMEP40CA97 PO; +QUET1TAB17 PO; -QUET25TA3 PO
--- NOTE | 2021-05-14 12:43 | REP ---
INDICATION: PAIN IN LEFT LOWER LIMB/SWELLING R/O DVT COMPARISON: None. TECHNIQUE: Real time compression and duplex Doppler interrogation of the left lower extremity deep venous system is performed, including the right common femoral vein.Compression of the left peroneal and posterior tibial veins is performed. FINDINGS: The left common femoral, superficial femoral and popliteal veins are fully compressible with transducer pressure and demonstrate normal spontaneous and phasic flow, without evidence of deep venous thrombosis.The right common femoral vein demonstrates no thrombus.The visualized left peroneal and posterior tibial veins demonstrate no thrombus. IMPRESSION: No evidence of deep venous thrombosis of the left lower extremity femoral popliteal venous system.No thrombus in the visualized left peroneal and posterior tibial veins. <Electronically signed by Pa Alcazar > 05/14/21 [id number]
== END ==
LOC: M RAD 12:09
PROVIDERS: ATTEND Nurse Practitioner Family
DX: M79.605 Pain in left leg (principal)

== ENCOUNTER → 2022-02-11 | Outpatient (CLI) | payer OTHER ==
[~2022-02-11] MED LIST changes: -MAGN400T3 PO; +MAGN400T33 PO
[2022-02-12 23:07] LABS: ANA (HEP2) Negative (.)
== END ==
LOC: M LAB 11:21
PROVIDERS: ATTEND Physician Assistant
DX: L56.4 Polymorphous light eruption (principal)

== ENCOUNTER → 2022-02-12 | Outpatient (CLI) | payer OTHER | LOC: M RAD 12:15 | PROVIDERS: ATTEND Nurse Practitioner Family | DX: M79.671 Pain in right foot (principal) ==

== ENCOUNTER → 2022-03-17 | Outpatient (REF) | LOC: M LAB 10:08 | PROVIDERS: ATTEND Nurse Practitioner Adult Health | DX: Z00.00 Encounter for general adult medical examination without abnormal findings (principal) ==

== ENCOUNTER 2022-07-15 10:24 | Emergency (ER) | payer OTHER ==
[~2022-07-15] VITALS: Ht 175.3 cm; Wt 86.9 kg
[~2022-07-15 10:24] MED LIST changes: -MAXA10TA14 PO; +RIZA10TA64 PO
[2022-07-15] MEDS ORDERED: METOCLOPRAMIDE INJ 10MG/2ML VIAL (J2765 PER 1) IV ONE (11:45)
[2022-07-15] MEDS ORDERED: NS 1,000 ML IV ONE (11:45)
[2022-07-15] MEDS ORDERED: KETOROLAC 30 MG/ML 1ML VIAL IV ONE (11:45)
[2022-07-15 12:37] LABS: BASO # 0.1 10^3/uL (0.0-0.2); BASO % 0.5 % (0.0-1.0); EOS # 0.3 10^3/uL (0.0-0.5); EOS % 2.5 % (0.0-3.0); HEMATOCRIT 37.4 % (36.0-47.0); HEMOGLOBIN 12.1 g/dl (12.0-15.5); LYMPH # 3.2 10^3/uL (1.5-5.0); LYMPH % 28.5 % (24.0-44.0); MEAN CORPUSCULAR HEMOGLOBIN 26.5 pg (27.0-33.0); MEAN CORPUSCULAR HGB CONC 32.4 g/dl (32.0-36.5); MEAN CORPUSCULAR VOLUME 81.8 fl (80.0-96.0); MONO # 0.7 10^3/uL (0.0-0.8); MONO % 6.2 % (2.0-8.0); NEUTROPHILS # 6.9 10^3/uL (1.5-8.5); NEUTROPHILS % 61.8 % (36.0-66.0); PLATELET COUNT, AUTOMATED 350 10^3/uL (150-450); RED BLOOD COUNT 4.57 10^6/uL (4.00-5.40); WHITE BLOOD COUNT 11.2 10^3/uL (4.0-10.0)
[2022-07-15 14:32] VITALS: BP 124/81
== END 2022-07-15 14:41 | disposition home or self-care (01) ==
LOC: M ED 10:24
DX: R20.2 Paresthesia of skin (principal); R51.9 Headache, unspecified; R07.89 Other chest pain; J45.909 Unspecified asthma, uncomplicated; F17.200 Nicotine dependence, unspecified, uncomplicated; Z91.040 Latex allergy status; Z79.51 Long term (current) use of inhaled steroids; Z79.899 Other long term (current) drug therapy
CPT/HCPCS: 70450; 80047; 83735; 84702; 85025; 93971; 96361; 96374; 96375; 99283; J1885; J2765

== ENCOUNTER 2022-09-24 14:10 | Emergency (ER) | payer OTHER ==
[~2022-09-24] VITALS: Ht 175.3 cm; Wt 85.7 kg
[2022-09-24 14:11] VITALS: BP 147/73
== END 2022-09-24 16:17 | disposition home or self-care (01) ==
LOC: M ED 14:10
DX: S63.601A Unspecified sprain of right thumb, initial encounter (principal); X50.9XXA Other and unspecified overexertion or strenuous movements or postures, initial encounter; Y99.0 Civilian activity done for income or pay; E11.9 Type 2 diabetes mellitus without complications; J45.909 Unspecified asthma, uncomplicated; Z91.040 Latex allergy status; Z79.51 Long term (current) use of inhaled steroids; Z79.899 Other long term (current) drug therapy

== ENCOUNTER → 2022-09-30 | Outpatient (REF) | payer OTHER | LOC: M PLALAB 08:33 | PROVIDERS: ATTEND Nurse Practitioner Family | DX: Z53.9 Procedure and treatment not carried out, unspecified reason (principal) ==

== ENCOUNTER → 2022-09-30 | Outpatient (CLI) | payer OTHER ==
[2022-09-30 11:43] LABS: HEPATITIS B SURFACE ANTIGEN NEGATIVE (NEGATIVE)
[2022-09-30 11:56] LABS: HIV 1&2 SCREEN CENTAUR NEGATIVE (NEGATIVE)
[2022-09-30 12:04] LABS: HEPATITIS B CORE ANTIBODY IGM NEGATIVE (NEGATIVE)
[2022-09-30 12:05] LABS: HEPATITIS C VIRUS ABY INDEX 0.1 INDEX (<0.8)
== END ==
LOC: M PLALAB 08:08
PROVIDERS: ATTEND Nurse Practitioner Family
DX: Z11.3 Encounter for screening for infections with a predominantly sexual mode of transmission (principal)

== ENCOUNTER → 2022-10-08 | Outpatient (CLI) | payer OTHER | LOC: M SOG 08:58 | PROVIDERS: ATTEND Orthopaedic Surgery Hand Surgery | DX: M79.641 Pain in right hand (principal) ==

== ENCOUNTER → 2022-12-30 | Outpatient (REF) | payer OTHER | LOC: M SFHCWAGY 10:24 | PROVIDERS: ATTEND Nurse Practitioner Family | DX: Z12.4 Encounter for screening for malignant neoplasm of cervix (principal) ==

== ENCOUNTER 2023-01-11 07:18 | Day surgery (SDC) | payer OTHER ==
[~2023-01-11] VITALS: Ht 175.3 cm; Wt 92.2 kg
[~2023-01-11 07:18] MED LIST changes: +ALBU8.5H INH; +AZEL1SPR3 INH; +CETI-24 PO; +FLUO1SOL TOP; +PIME1CRE SQ; +TRIA1CR80 SQ
[2023-01-11] MEDS ORDERED: LR 1,000 ML IV SCH ×2 (08:25→11:30)
[2023-01-11] MEDS ORDERED: LIDOCAINE 2% 100MG/5ML SDV (FOR ANES.) As Ordered ONE (10:25)
[2023-01-11] MEDS ORDERED: propofoL 200 MG/20 ML VIAL As Ordered ONE (10:25)
[2023-01-11] MEDS ORDERED: MIDAZOLAM INJ 2MG/2ML VIAL As Ordered ONE (10:26)
[2023-01-11] MEDS ORDERED: fentaNYL 100 MCG/2 ML INJECTION As Ordered ONE (10:26)
[2023-01-11] MEDS ORDERED: BUPIVACAINE HCL 0.25% 30ML VIAL As Ordered ONE (10:37)
[2023-01-11] MEDS ORDERED: ONDANSETRON 4MG 2ML VIAL As Ordered ONE (10:51)
[2023-01-11] MEDS ORDERED: KETOROLAC 60MG 2ML VIAL As Ordered ONE (11:20)
[2023-01-11] MEDS ORDERED: ACETAMINOPHEN 1000MG 100ML IV BAG As Ordered ONE (11:21)
[2023-01-11] MEDS ORDERED: ONDANSETRON 4MG 2ML VIAL IV PRN (11:30)
[2023-01-11] MEDS ORDERED: HYDROMORPHONE HCL 0.5 MG/ 0.5 ML SYRINGE IV PRN (11:30)
[2023-01-11] MEDS ORDERED: oxyCODONE 5MG TAB PO PRN (11:30)
[2023-01-11] MEDS ORDERED: fentaNYL 100 MCG/2 ML INJECTION IV PRN (11:30)
[2023-01-11] MEDS ORDERED: OXYC1TAB23 PO (11:40)
[2023-01-11 13:35] VITALS: BP 102/71
== END 2023-01-11 13:40 | disposition home or self-care (01) ==
LOC: M SDC 07:18
PROVIDERS: ATTEND Orthopaedic Surgery Hand Surgery
DX: G56.01 Carpal tunnel syndrome, right upper limb (principal); M65.4 Radial styloid tenosynovitis [de Quervain]; F32.A Depression, unspecified; F41.9 Anxiety disorder, unspecified; G43.909 Migraine, unspecified, not intractable, without status migrainosus; K59.04 Chronic idiopathic constipation; J45.909 Unspecified asthma, uncomplicated; Z87.891 Personal history of nicotine dependence; Z79.899 Other long term (current) drug therapy
CPT/HCPCS: 25000; 29848; J0131; J1100; J1885; J2250; J2405; J3010

== ENCOUNTER → 2023-01-14 | Outpatient (CLI) | payer OTHER ==
[~2023-01-14] MED LIST changes: +OXYC1TAB23 PO
== END ==
LOC: M WHC 07:54
PROVIDERS: ATTEND Nurse Practitioner Family
DX: Z12.31 Encounter for screening mammogram for malignant neoplasm of breast (principal)

== ENCOUNTER 2023-01-17 12:58 | Emergency (ER) | payer OTHER ==
[~2023-01-17] VITALS: Ht 175.3 cm; Wt 92.9 kg
[2023-01-17] MEDS ORDERED: NEOSPORIN OINT 0.9 GM PKT TOP ONE (16:30)
[2023-01-17 16:40] VITALS: BP 130/82
== END 2023-01-17 16:45 | disposition home or self-care (01) ==
LOC: M ED 12:58
DX: G89.18 Other acute postprocedural pain (principal); J45.909 Unspecified asthma, uncomplicated; R51.9 Headache, unspecified; Z91.040 Latex allergy status; Z91.018 Allergy to other foods; Z79.899 Other long term (current) drug therapy; Z79.51 Long term (current) use of inhaled steroids

== ENCOUNTER 2023-01-22 07:47 | Day surgery (SDC) | payer OTHER ==
[~2023-01-22] VITALS: Ht 175.3 cm; Wt 91.6 kg
[2023-01-22] MEDS ORDERED: propofoL 200 MG/20 ML VIAL As Ordered ONE (08:30)
[2023-01-22] MEDS ORDERED: MIDAZOLAM INJ 2MG/2ML VIAL As Ordered ONE (08:30)
[2023-01-22] MEDS ORDERED: KETOROLAC 60MG 2ML VIAL As Ordered ONE (08:30)
[2023-01-22] MEDS ORDERED: fentaNYL 100 MCG/2 ML INJECTION As Ordered ONE (08:30)
[2023-01-22] MEDS ORDERED: ONDANSETRON 4MG 2ML VIAL As Ordered ONE (08:30)
[2023-01-22] MEDS ORDERED: LIDOCAINE 2% 100MG/5ML SDV (FOR ANES.) As Ordered ONE (08:30)
[2023-01-22] MEDS ORDERED: BUPIVACAINE HCL 0.25% 30ML VIAL As Ordered ONE (09:31)
[2023-01-22] MEDS ORDERED: ePHEDrine SULFATE 25 MG/5 ML(5MG/ML) SYRINGE As Ordered ONE (10:28)
[2023-01-22] MEDS ORDERED: ACETAMINOPHEN 1000MG 100ML IV BAG As Ordered ONE (10:35)
[2023-01-22] MEDS ORDERED: BACITRACIN OINTMENT 30GM TUBE As Ordered ONE (10:48)
[2023-01-22] MEDS ORDERED: fentaNYL 100 MCG/2 ML INJECTION IV PRN (11:00)
[2023-01-22] MEDS ORDERED: LR 1,000 ML IV SCH (11:00)
[2023-01-22] MEDS ORDERED: oxyCODONE 5MG TAB PO PRN (11:00)
[2023-01-22] MEDS ORDERED: ONDANSETRON 4MG 2ML VIAL IV PRN (11:00)
[2023-01-22] MEDS ORDERED: HYDROMORPHONE HCL 0.5 MG/ 0.5 ML SYRINGE IV PRN (11:00)
[2023-01-22 13:00] VITALS: BP 128/76; TEMP 97.6; O2SAT 97
== END 2023-01-22 13:15 | disposition home or self-care (01) ==
LOC: M SDC 07:47
PROVIDERS: ATTEND Orthopaedic Surgery Hand Surgery
DX: G56.02 Carpal tunnel syndrome, left upper limb (principal); M65.4 Radial styloid tenosynovitis [de Quervain]; K59.04 Chronic idiopathic constipation; K21.9 Gastro-esophageal reflux disease without esophagitis; J45.909 Unspecified asthma, uncomplicated; F43.10 Post-traumatic stress disorder, unspecified; F41.9 Anxiety disorder, unspecified; F32.A Depression, unspecified; Z79.51 Long term (current) use of inhaled steroids; Z79.899 Other long term (current) drug therapy; Z91.040 Latex allergy status; Z91.018 Allergy to other foods
CPT/HCPCS: 25000; 29848; J0131; J1100; J1885; J2250; J2405; J3010

== ENCOUNTER → 2023-02-26 | Outpatient (CLI) | payer OTHER | LOC: M SOG 16:10 | PROVIDERS: ATTEND Physician Assistant | DX: M25.521 Pain in right elbow (principal); M25.522 Pain in left elbow ==

== ENCOUNTER → 2023-11-01 | Outpatient (REF) | payer OTHER, MEDICAID | LOC: M LAB REF 21:24 | PROVIDERS: ATTEND Physician Assistant Medical | DX: B34.9 Viral infection, unspecified (principal) ==

== ENCOUNTER 2024-01-19 11:30 | Outpatient (RCR) | payer OTHER | END 2024-01-21 | LOC: M PT 11:30 | PROVIDERS: ATTEND Physician Assistant | DX: M62.838 Other muscle spasm (principal) ==

== ENCOUNTER → 2024-02-02 | Outpatient (CLI) | payer OTHER ==
[~2024-02-02] MED LIST changes: +GASTROGRAFIN SOLUTION 30ML ONE; +ISOVUE-370 76% 100ML VIAL ONE
== END ==
LOC: M PLAIMG 07:30
PROVIDERS: ATTEND Physician Assistant
DX: R10.30 Lower abdominal pain, unspecified (principal); R19.4 Change in bowel habit

== ENCOUNTER → 2024-02-16 | Outpatient (REF) | payer OTHER ==
[~2024-02-16] MED LIST changes: -GASTROGRAFIN SOLUTION 30ML ONE; -ISOVUE-370 76% 100ML VIAL ONE
[2024-02-16 18:31] LABS: HEMATOCRIT 41.1 % (36.0-47.0); HEMOGLOBIN 13.2 g/dl (12.0-15.5); MEAN CORPUSCULAR HEMOGLOBIN 26.5 pg (27.0-33.0); MEAN CORPUSCULAR HGB CONC 32.1 g/dl (32.0-36.5); MEAN CORPUSCULAR VOLUME 82.5 fl (80.0-96.0); PLATELET COUNT, AUTOMATED 438 10^3/uL (150-450); RED BLOOD COUNT 4.98 10^6/uL (4.00-5.40); WHITE BLOOD COUNT 12.5 10^3/uL (4.0-10.0)
[2024-02-16 19:02] LABS: ALBUMIN 4.2 G/DL (3.2-5.2); ALKALINE PHOSPHATASE 103 U/L (46-116); ALT/SGPT 59 U/L (7.0-40); AST/SGOT 41 U/L (<34); BILIRUBIN,TOTAL 0.7 MG/DL (0.3-1.2); BLOOD UREA NITROGEN 18 MG/DL (9-23); CALCIUM LEVEL 10.1 MG/DL (8.5-10.1); CARBON DIOXIDE LEVEL 27 MMOL/L (20-31); CHLORIDE LEVEL 105 MMOL/L (98-107); CHOLESTEROL LEVEL 190 MG/DL (<200); CHOLESTEROL RISK RATIO 4.26 (<5); CREATININE FOR GFR 0.64 MG/DL (0.55-1.30); GLOMERULAR FILTRATION RATE > 60.0 (>51); GLUCOSE, FASTING 116 MG/DL (60-100); HDL CHOLESTEROL 44.5 MG/DL (>40); LDL CHOLESTEROL 109.3 MG/DL (<100); NON-HDL-C 145.5 MG/DL; POTASSIUM SERUM 5.4 MMOL/L (3.5-5.1); SODIUM LEVEL 139 MMOL/L (136-145); TRIGLYCERIDES LEVEL 181 MG/DL (<150)
[2024-02-16 19:04] LABS: THYROID STIMULATING HORMONE 2.542 uIU/ML (0.55-4.78)
== END ==
LOC: M LAB REF 16:33
PROVIDERS: ATTEND Physician Assistant
DX: Z83.3 Family history of diabetes mellitus (principal); R73.9 Hyperglycemia, unspecified; E66.9 Obesity, unspecified

== ENCOUNTER → 2024-06-01 | Outpatient (REF) | payer OTHER | LOC: M LAB REF 16:21 | PROVIDERS: ATTEND Physician Assistant | DX: J06.9 Acute upper respiratory infection, unspecified (principal) ==

== ENCOUNTER → 2024-09-07 | Outpatient (REF) | payer OTHER ==
[2024-09-07 14:37] LABS: ALBUMIN 4.1 G/DL (3.2-5.2); ALKALINE PHOSPHATASE 97 U/L (35-104); ALT/SGPT 54 U/L (7.0-40); AST/SGOT 35 U/L (<34); BILIRUBIN,TOTAL 0.6 MG/DL (0.3-1.2); BLOOD UREA NITROGEN 17 MG/DL (9-23); CALCIUM LEVEL 9.5 MG/DL (8.5-10.1); CARBON DIOXIDE LEVEL 27 MMOL/L (20-31); CHLORIDE LEVEL 106 MMOL/L (98-107); CHOLESTEROL LEVEL 213 MG/DL (<200); CHOLESTEROL RISK RATIO 4.08 (<5); CREATININE FOR GFR 0.61 MG/DL (0.55-1.30); GLOMERULAR FILTRATION RATE > 60.0 (>51); GLUCOSE, FASTING 115 MG/DL (60-100); HDL CHOLESTEROL 52.2 MG/DL (>40); LDL CHOLESTEROL 126.8 MG/DL (<100); NON-HDL-C 160.8 MG/DL; POTASSIUM SERUM 4.6 MMOL/L (3.5-5.1); SODIUM LEVEL 142 MMOL/L (136-145); TOTAL PROTEIN 7.8 G/DL (5.7-8.2); TRIGLYCERIDES LEVEL 170 MG/DL (<150)
[2024-09-07 14:38] LABS: HEMOGLOBIN A1c 6.3 % (4.0-6.0)
== END ==
LOC: M LAB REF 12:38
PROVIDERS: ATTEND Physician Assistant
DX: E78.5 Hyperlipidemia, unspecified (principal); Z83.3 Family history of diabetes mellitus; R73.9 Hyperglycemia, unspecified

== ENCOUNTER → 2024-12-28 | Outpatient (REF) | payer OTHER ==
[~2024-12-28] MED LIST changes: +TOPI-257 PO; -TOPI100T9 PO
== END ==
LOC: M LAB REF 17:48
PROVIDERS: ATTEND Podiatrist
DX: M67.472 Ganglion, left ankle and foot (principal)

== ENCOUNTER → 2025-05-17 | Outpatient (REF) | payer OTHER | LOC: M LAB REF 20:56 | PROVIDERS: ATTEND Physician Assistant | DX: B34.9 Viral infection, unspecified (principal) ==

== ENCOUNTER → 2025-07-25 | Outpatient (CLI) | payer OTHER | LOC: M RAD 15:51 | PROVIDERS: ATTEND Nurse Practitioner Family | DX: R07.89 Other chest pain (principal) ==